=== PATIENT | male | born 1955 | race Caucasian/White ===

== ENCOUNTER → 2023-05-16 08:11 | Outpatient (REF) | payer MEDICARE, SELFPAY | LOC: RAD 08:11 | PROVIDERS: ATTENDING PHYSICIAN Surgery; FAMILY PHYSICIAN Family Medicine | DX: N50.811 Right testicular pain (principal) | CPT/HCPCS: 76870; 93976 ==

== ENCOUNTER 2024-05-25 19:49 | Emergency (ER) | payer MEDICARE, SELFPAY ==
[2024-05-25 19:52] VITALS: BP 205/99
[2024-05-25 20:21] VITALS: BP 163/76
[2024-05-25 20:36] VITALS: BMI 29.5
--- NOTE | 2024-05-25 20:50 | ED.GENMED ---
History of Present Illness
<CARLOS Traore - Last Filed: 05/26/24 17:44>
General
Chief Complaint: Blood Pressure Problem
Source: patient
Exam Limitations: none
Time Seen by Provider: 05/25/24 20:41
Nursing documentation reviewed up to this point in time: agreed with
History of Present Illness
History of Present Illness:
Patient is a 69-year-old male with history of hypertension presents to the ER for evaluation.
Prior to arrival patient reports he took an ibuprofen because he has been having some low back pain and then about 1 hour afterward felt very warm sensation and felt flushed in his head.
He did take his bp and it was 145/83. He retook it and it was 190/90.
He had no difficulty breathing no lip or tongue swelling no throat closing sensation. He does report he felt funny to the right side of his neck when symptoms occurred.
He had no chest pain no shortness of breath.
Pt did not take his evening bp medication tonight. He does note that in the past when he has had a pasta dinner and did not take his metformin, his face would get flushed and he did eat pasta tonight.
Review of Systems
<CARLOS Traore - Last Filed: 05/26/24 17:44>
Review of Systems
Allergies reviewed?: Yes
All Other Systems: ROS reviewed and negative except as documented in HPI and ROS
Constitutional: Reports no symptoms; Denies fever, fatigue or chills
EENT: Reports no symptoms
Respiratory: Reports no symptoms; Denies trouble breathing
Cardiac: Reports no symptoms; Denies palpitations
ABD/GI: Reports no symptoms
: Reports no symptoms
Musculoskeletal: Reports no symptoms
Skin: Reports other (felt flushed in his head )
Neurological: Reports no symptoms
Psychiatric: Reports no symptoms
Phy Exam
<CARLOS Traore - Last Filed: 05/26/24 17:44>
General Physical Exam
General Presentation: no apparent distress
General age: appears stated age
General Skin: warm and dry
General Habitus: normal
General Mental: alert
General Hydration: appears well hydrated
Cardiovascular Exam
Cardiovascular Exam: regular rate/rhythm, no murmur and normal peripheral pulses
Pulmonary Exam
Pulmonary Exam: lungs clear and no respiratory distress
Neurological Exam
Neurological Exam: alert and oriented x3
Musculoskeletal Exam
Musculoskeletal Exam: full ROM
Skin Exam
Skin Exam: normal color, warm/dry and other (mild facial flushing )
Psychiatric Exam
Psychiatric Exam: normal mood/affect
Course
<CARLOS Traore - Last Filed: 05/26/24 17:44>
Orders/Labs/Results
Orders:
Orders
05/25/24 19:54
ECG [Electrocardiogram (*1)] Urgent
Reason for Study: Hypertension, Benign
05/25/24 19:55
EKG- Treatment ONCE
05/25/24 20:51
IV Insert/Care/Rem.- Treatment PRN
05/25/24 21:44
Complete Blood Count/With Diff Urgent
Comprehensive Metabolic Panel Urgent
05/25/24 22:06
METFORMIN HCl [Glucophage] 1,000 mg PO NOW STA
Abnormal Lab Results
05/25/24
21:44
MPV 10.6 H fL
(7.4-10.4)
Abs Immat Gran (auto) 0.1 H 10^3/uL
(0-0.05)
Absolute Monos (auto) 1.1 H 10^3/uL
(0.1-0.6)
Immature Gran % 0.7 H %
(0-0.5)
Monocytes % 12.1 H %
(1.7-9.3)
BUN 30 H mg/dl
(9-20)
Glucose 198 H mg/dl
(70-99)
05/25/24 21:44
05/25/24 21:44
Vital Signs
Initial and Last Documented VS:
Initial Vital Signs
Temp Pulse Resp BP Pulse Ox
98.2 F 95 20 205/99 99
05/25/24 19:52 05/25/24 19:52 05/25/24 19:52 05/25/24 19:52 05/25/24 19:52
Last Documented Vital Signs
Temp Pulse Resp BP Pulse Ox
98.2 F 88 17 163/76 99
05/25/24 19:52 05/25/24 20:30 05/25/24 20:30 05/25/24 20:21 05/25/24 20:36
<Geovanna Miranda DO - Last Filed: 05/26/24 19:29>
Orders/Labs/Results
Orders:
Orders
05/25/24 19:54
ECG [Electrocardiogram (*1)] Urgent
Reason for Study: Hypertension, Benign
05/25/24 19:55
EKG- Treatment ONCE
05/25/24 20:51
IV Insert/Care/Rem.- Treatment PRN
05/25/24 21:44
Complete Blood Count/With Diff Urgent
Comprehensive Metabolic Panel Urgent
05/25/24 22:06
METFORMIN HCl [Glucophage] 1,000 mg PO NOW STA
Abnormal Lab Results
05/25/24
21:44
MPV 10.6 H fL
(7.4-10.4)
Abs Immat Gran (auto) 0.1 H 10^3/uL
(0-0.05)
Absolute Monos (auto) 1.1 H 10^3/uL
(0.1-0.6)
Immature Gran % 0.7 H %
(0-0.5)
Monocytes % 12.1 H %
(1.7-9.3)
BUN 30 H mg/dl
(9-20)
Glucose 198 H mg/dl
(70-99)
05/25/24 21:44
05/25/24 21:44
Vital Signs
Initial and Last Documented VS:
Initial Vital Signs
Temp Pulse Resp BP Pulse Ox
98.2 F 95 20 205/99 99
05/25/24 19:52 05/25/24 19:52 05/25/24 19:52 05/25/24 19:52 05/25/24 19:52
Last Documented Vital Signs
Temp Pulse Resp BP Pulse Ox
98.2 F 88 17 163/76 99
05/25/24 19:52 05/25/24 20:30 05/25/24 20:30 05/25/24 20:21 05/25/24 20:36
<CARLOS Traore - Last Filed: 05/26/24 17:44>
MDM/Problems Addressed
MDM/Problems Addressed:
Patient is document is a 69-year-old male who presented for facial flushing. He had taken ibuprofen because his back was hurting and then felt flushed. Because he was flushed have his blood pressure was elevated which prompted him to come to the
ER. He denies any headache and has no other symptoms he is well-appearing on exam he does have some mild facial flushing however he is nontoxic blood pressure is elevated. He reports that he has had facial flushing in the past with eating a pastas
dinner and not taking his metformin which occurred tonight. He has no neurological complaints no cardiac complaints denies any chest pain shortness of breath headache. He denies any visual disturbance. He is in no acute distress and well
appearing. Case d/c w/ ED physician who eval pt.
pt stable for d/c home with instructions to have his blood pressure rechecked and to continue taking his medicine.
<CARLOS Traore - Last Filed: 05/26/24 17:44>
*Critical Care Note
Total Time (30-74mins, 75-104mins- exclusive of procedures): Not Applicable
ED Attending Note
<CARLOS Traore - Last Filed: 05/26/24 17:44>
-
Portions of this chart may have been created with voice recognition software.� Occasional wrong word or��sound alike� substitutions may have occurred due to the inherent limitations of voice recognition software.
<Geovanna Miranda DO - Last Filed: 05/26/24 19:29>
ED Attending Note
Patient seen and examined by attending physician: Yes
I performed the substantive portion of visit, reviewed & personally made and approve the management plan that is documented in note by myself or ASIA.: Yes
ED Attending Note:
69-year-old male history of hypertension, hyperlipidemia, diabetes presenting with high blood pressure. Patient states that he was having low back pain and took ibuprofen. Patient states that an hour afterwards he felt a warm sensation throughout
his body and felt flushed to his face. Patient states that he took his blood pressure which was noted to be 190/90. Patient denies any chest pain, shortness of breath, visual changes, headache, abdominal pain, numbness, weakness or tingling.
Patient states that he did not take his evening dose of metoprolol tonight. Patient states that when he eats pasta and does not take his metformin, he has had episodes of facial flushing. Patient denies any cough, fever, weight loss, or changes
with moving his arms above his head. Patient was noted to be 205/99 in triage, but was 159/70s while I was in the room. Heart regular rate rhythm, lungs clear, abdomen soft nondistended nontender. PERRLA, EOMI. Cranial nerves II through show
grossly intact with no focal deficits. 5 5 strength bilateral upper lower extremities. Sensation intact. Normal [id number]. Results reviewed, no endorgan damage. Blood pressure decreased without any intervention in the emergency department.
Discussed importance of continuing to take blood pressure medications as prescribed. Suspect spike in elevated blood pressure from chronic pain and not taking medication. Stable for discharge with PCP follow-up. Discussed return precautions.
Patient expressed verbal understanding.
Discharge Plan
Departure
Patient Disposition: Home (Routine Discharge)
Date of Disposition: 05/25/24
Time of Disposition: 22:21
Patient with high blood pressure during this ER visit?: Yes
Condition: Fair
Covid-19: Not Applicable
Discharge Problem:
elevated blood pressure
Instructions: High Blood Pressure (DC), BLOOD PRESSURE
Prescriptions:
No Action
prednisone 10 MG tablet
10 mg PO .TAPER
atorvastatin 20 MG tablet
20 mg PO DAILY
metoprolol succinate 100 MG tablet extended release 24 hr
100 mg PO DAILY
chlorthalidone 25 MG tablet
25 mg PO DAILY
aspirin 81 MG tablet,delayed release (DR/EC)
81 mg PO DAILY
quinapril 40 MG tablet
40 mg PO DAILY
amlodipine 10 MG tablet
10 mg PO DAILY
cephalexin 500 MG capsule
500 mg PO BID
metformin 1,000 MG tablet
1,000 mg PO BID
fenofibrate nanocrystallized 145 MG tablet
145 mg PO DAILY
Referrals:
Eros Alvarenga DO [Family Provider] -
Activity Restrictions/Additional Instructions:
Continue to take your blood pressure medication as previously prescribed
follow-up with your family doctor in the next 2 days for reevaluation
return if any worsening of symptoms
Interventions
Interventions:
*Risk Screen - Suicide Last Done: 05/25/24 20:36
*General Assessment Last Done: 05/25/24 19:52
*Neglect/Abuse Screening Last Done: 05/25/24 20:36
*ED- Fall Risk Assessment Last Done: 05/25/24 20:36
*ED COVID-19 Vaccine History Last Done: 05/25/24 20:36
*Nursing Disposition Last Done: 05/25/24 22:52
ED- Cardiac Assessment Last Done: 05/25/24 20:36
ED- Neurological Assessment Last Done: 05/25/24 20:36
ED- Pulmonary Assessment Last Done: 05/25/24 20:36
Discharge Date and Time
Discharge Date/Time: 05/25/24 22:53
Print Language: TONGAN
[2024-05-25 21:50] LABS: % Basophils 0.8 % (0-2); % Eosinophils 2.1 % (0-6); % Immature Granulocytes 0.7 % (0-0.5); % Lymphocytes 22.3 % (20.5-51.1); % Monocytes 12.1 % (1.7-9.3); Absolute Basophils 0.1 10^3/uL (0-0.2); Absolute Eosinophils 0.2 10^3/uL (0-0.7); Absolute Immature Granulocytes 0.1 10^3/uL (0-0.05); Absolute Monocytes 1.1 10^3/uL (0.1-0.6); Absolute Neutrophils 5.4 10^3/uL (1.4-6.5); Hematocrit 45.7 % (39.0-52.0); Hemoglobin 16.2 g/dL (13.0-18.0); Mean Corp Hgb Conc. 35.4 g/dL (33.0-37.0); Mean Corpuscular Hgb 29.4 pg (27.0-31.0); Mean Corpuscular Volume 82.9 fL (80.0-94.0); Mean Platelet Volume 10.6 fL (7.4-10.4); Nucleated Red Blood Cells % 0 % (-); Platelet Count 272 10^3/uL (130-400); Red Blood Cell Count 5.51 10^6/uL (4.70-6.10); Red Cell Dist. Width 12.9 % (11.5-14.5); White Blood Cell Count 8.7 10^3/uL (4.8-10.8)
[2024-05-25 22:06] LABS: ALT (SGPT) 24 U/L (0-50); AST (SGOT) 26 U/L (17-59); Albumin 4.6 g/dl (3.5-5.0); Alkaline Phosphatase 43 U/L (38-126); Blood Urea Nitrogen 30 mg/dl (9-20); Calcium 9.8 mg/dl (8.4-10.2); Carbon Dioxide 24 mmol/L (22-30); Chloride 101 mmol/L (98-107); Estimated Creatinine Clearance 71 ml/min; Glucose 198 mg/dl (70-99); Potassium 3.8 mmol/L (3.5-5.1); Sodium 135 mmol/L (135-145); Total Bilirubin 0.7 mg/dl (0.2-1.3); Total Protein 7.6 g/dl (6.3-8.2); eGFR > 60.00
[2024-05-25] MEDS: GLUCOPHAGE 1000 MG PO (22:35)
== END 2024-05-25 22:53 | disposition home or self-care (01) ==
LOC: EMR 19:49
PROVIDERS: Nurse Practitioner; EMERGENCY PHYSICIAN Emergency Medicine; FAMILY PHYSICIAN Student in an Organized Health Care Education/Training Program
DX: I10 Essential (primary) hypertension (principal)
CPT/HCPCS: 99284; 80053; 85025; 93005

== ENCOUNTER 2024-06-07 06:19 | Day surgery (SDC) | payer MEDICARE, SELFPAY ==
[2024-05-24 14:16] VITALS: BMI 29.2
[2024-06-07] VITALS (7 sets, daily range): BP systolic 118–144; BP diastolic 47–76; BMI 29.2
[2024-06-07] MEDS: NORMOSOL-R/PLASMALYTE-A 1000 IV (09:35)
[2024-06-07] MEDS: TYLENOL 1000 MG PO (09:35)
[2024-06-07 09:36] LABS: Glucose - Point of Care 116 mg/dl (70-99)
--- NOTE | 2024-06-07 10:53 | W.SUR.PREOP ---
Pre-Operative Surgical Note
-
I have examined this patient prior to the performance of the scheduled procedure.
The patient's condition is unchanged from the time of the current History and
Physical and the patient is able to undergo the scheduled procedure.
[2024-06-07 12:03] LABS: Glucose - Point of Care 139 mg/dl (70-99)
[2024-06-07 13:08] LABS: Glucose - Point of Care 186 mg/dl (70-99)
--- NOTE | 2024-06-07 14:23 | PTCARENOTE ---
Report given to Isabela RN at 1415.
--- NOTE | 2024-06-07 15:01 | W.IMMPOSTOP ---
Surgical Immed Post Op Note
-
Primary Surgeon: Seamus Pressley MD
Assisting Surgeon: None
Pre-op Diagnosis: Recurrent right inguinal hernia
Post-op Diagnosis: Same
Procedure Performed:
1. Robotic recurrent right inguinal hernia repair with mesh
2. Removal of foreign body (mesh plug)
Anesthesia Type: General
Specimen / Cultures: Right inguinal mesh plug
Estimated Blood Loss: 3 cc
Complications: None
Operative Findings: Recurrent right direct inguinal hernia with mesh plug in place. Thankfully this was nonadherent to the surrounding structures and was removed intact. The flat mesh in the anterior space could be visualized and was divided flush
at the level of the direct space. After achieving the critical view of the MPO, the space was reinforced with a large right Bard 3D max uncoated mid weight polypropylene mesh.
--- NOTE | 2024-06-07 15:04 | OR.RPT ---
Operative Report
Operative Report
Patient Name: Derek Coronado
: 1955
Date of Operation: 06/07/2024
Preoperative Diagnosis: Recurrent right inguinal hernia
Postoperative Diagnosis: Same
Procedure(s):
1. Robotic recurrent right inguinal hernia repair with mesh
2. Removal of foreign body (mesh plug)
Surgeon(s):
Dr. Pressley
Lobster Man(s):
PATRICK Eric
Anesthesia: General
Estimated Blood Loss: 3 cc
Urine Output: None
Drains/Lines/Implants: Large 3D Max Bard mid weight uncoated polypropylene mesh
Specimens: None
Indication for surgery: The patient has a history of groin pain and noted on exam to have a recurrent right inguinal Hernia, in the setting of a previous open repair with mesh. Following review of therapeutic options they have elected to undergo a
minimally invasive repair.
Operative Findings: Recurrent right direct inguinal hernia with mesh plug in place. Thankfully this was nonadherent to the surrounding structures and was removed intact. The flat mesh in the anterior space could be visualized and was divided flush
at the level of the direct space. After achieving the critical view of the MPO, the space was reinforced with a large right Bard 3D max uncoated mid weight polypropylene mesh.
Details of the operation:
The patient was brought to the Operating Room and placed in the supine position with the arms tucked. IV antibiotics were infused and Venodyne stockings placed. Following uneventful induction of general endotracheal anesthesia, an orogastric tube
was placed. The abdomen was prepped and draped in the usual sterile fashion. The abdomen was entered using a Veress technique which required 1 pass, pneumoperitoneum to 15 mmHg was obtained without difficulty. An 8mm trochar was passed through the
abdominal wall roughly 20 cm cephalad to the inguinal canal. We then confirmed that no inadvertent injury was made while passing the trocar or Veress needle. We then placed two additional 8 mm ports in the left upper and right upper quadrants. We
then docked the robot with a Prograsper in the left hand port and monopolar scissors in the right. There was a notable defect in the right groin, no defect noted on the left. We then began by creating a flap at the level of the ASIS laterally
working our way medially to the medial umbilical fold. Staying onto the peritoneum we were able to circumferentially dissect around the hernia sac and and peel it off of the underlying spermatic cord and testicular vessels, taking care to preserve
them. Medially we identified the midline pubis as well as Martin's ligament and ensured to dissect 2 cm below the pubic rim over the bladder. As we took down the fat in the direct space it was clear that there was a mesh plug protruding through
the opening which was thankfully nonadherent to the surrounding keating structures and removed basically to the level of the transversalis fascia of the recurrent direct hernia. After exposure of the entire myopectineal orifice we identified and
reduced: A small direct inguinal hernia and corresponding mesh plug, no indirect or femoral defect. No cord lipoma was identified. We then fixated a large 3D max mesh with a 2-0 Vicryl stitch at coopers medially and superior laterally. The flap
was then closed with a running 2-0 barbed monocryl suture ensuring that the tail was cut flush with the medial fat pad so that no barbs were exposed. During the closure of the flap an Angiocath was inserted and 20 cc of quarter percent Marcaine was
instilled. The area in the flap cavity was then evacuated of air confirming that the mesh was flush and there were no folds. A small rent in the peritoneum was noted and closed with 2-0 Vicryl. All needles and instruments were then removed and the
robot was undocked. The abdomen was then desufflated, and pneumoperitoneum evacuated. All skin sites were then closed with 4-0 Monocryl followed by Dermabond. Counts were correct and overall, the patient tolerated the procedure well and was taken
to the Recovery Room postoperatively in stable condition.
I was the attending physician and performed the procedure with assistance of the PA above. The assistance of PATRICK Eric was required due to the complexity of the procedure. During the procedure Rebekah assisted with port placement, instrument
and needle exchanges, and closure of the wound. I was present for all portions of the case, excluding skin closure.
Saemus Pressley MD
== END 2024-06-07 14:35 | disposition home or self-care (01) ==
LOC: SDS 06:19
PROVIDERS: ATTENDING PHYSICIAN Surgery; FAMILY PHYSICIAN Student in an Organized Health Care Education/Training Program
DX: K40.91 Unilateral inguinal hernia, without obstruction or gangrene, recurrent (principal)
CPT/HCPCS: 49651; 88300; 36415; 82962; 93005; C1781

== ENCOUNTER 2024-06-18 15:05 | Outpatient (RCR) | payer MEDICARE, SELFPAY | END 2024-06-18 23:59 | disposition home or self-care (01) | LOC: RPT 15:05 | PROVIDERS: ATTENDING PHYSICIAN Student in an Organized Health Care Education/Training Program | DX: M54.12 Radiculopathy, cervical region (principal); Z73.6 Limitation of activities due to disability; M62.81 Muscle weakness (generalized); M25.512 Pain in left shoulder; C01 Malignant neoplasm of base of tongue | CPT/HCPCS: 97110; 97140; 97162 ==

== ENCOUNTER 2024-07-10 14:01 | Outpatient (RCR) | payer MEDICARE, SELFPAY | END 2024-07-10 23:59 | disposition home or self-care (01) | LOC: RPT 14:01 | PROVIDERS: ATTENDING PHYSICIAN Student in an Organized Health Care Education/Training Program | DX: M54.12 Radiculopathy, cervical region (principal); Z73.6 Limitation of activities due to disability; M62.81 Muscle weakness (generalized); M25.512 Pain in left shoulder; C01 Malignant neoplasm of base of tongue; R26.89 Other abnormalities of gait and mobility | CPT/HCPCS: 97010; 97110; 97140 ==

== ENCOUNTER → 2024-07-11 07:28 | Outpatient (REF) | payer MEDICARE, SELFPAY | LOC: RAD 07:28 | PROVIDERS: ATTENDING PHYSICIAN Student in an Organized Health Care Education/Training Program; OTHER PHYSICIAN Radiology Radiation Oncology; REFERRING PHYSICIAN Surgery | DX: R63.4 Abnormal weight loss (principal) | CPT/HCPCS: 71270; 74178; Q9967 ==

== ENCOUNTER 2024-07-27 12:23 | Inpatient (IN) | payer MEDICARE, SELFPAY ==
[2024-07-27] VITALS (10 sets, daily range): BP systolic 103–144; BP diastolic 50–74; PULSE 82; BMI 25.5; BMI 25.3
[2024-07-27 09:22] LABS: % Basophils 0.8 % (0-2); % Eosinophils 2.4 % (0-6); % Immature Granulocytes 0.4 % (0-0.5); % Lymphocytes 22.4 % (20.5-51.1); % Monocytes 12.6 % (1.7-9.3); % Neutrophils 61.4 % (42.2-75.2); Absolute Basophils 0.1 10^3/uL (0-0.2); Absolute Eosinophils 0.2 10^3/uL (0-0.7); Absolute Lymphocytes 1.6 10^3/uL (1.2-3.4); Absolute Monocytes 0.9 10^3/uL (0.1-0.6); Absolute Neutrophils 4.4 10^3/uL (1.4-6.5); Hematocrit 37.1 % (39.0-52.0); Hemoglobin 13.4 g/dL (13.0-18.0); Mean Corp Hgb Conc. 36.1 g/dL (33.0-37.0); Mean Corpuscular Hgb 29.9 pg (27.0-31.0); Mean Corpuscular Volume 82.8 fL (80.0-94.0); Mean Platelet Volume 10.7 fL (7.4-10.4); Nucleated Red Blood Cells % 0 % (-); Platelet Count 331 10^3/uL (130-400); Red Blood Cell Count 4.48 10^6/uL (4.70-6.10); Red Cell Dist. Width 13.5 % (11.5-14.5); White Blood Cell Count 7.2 10^3/uL (4.8-10.8)
[2024-07-27 09:38] LABS: ALT (SGPT) 80 U/L (0-50); AST (SGOT) 55 U/L (17-59); Albumin 4.2 g/dl (3.5-5.0); Alkaline Phosphatase 21 U/L (38-126); Blood Urea Nitrogen 23 mg/dl (9-20); Carbon Dioxide 30 mmol/L (22-30); Chloride 94 mmol/L (98-107); Glucose 160 mg/dl (70-99); Potassium 3.9 mmol/L (3.5-5.1); Sodium 131 mmol/L (135-145); Total Bilirubin 0.8 mg/dl (0.2-1.3); Total Protein 6.7 g/dl (6.3-8.2); eGFR > 60.00
--- NOTE | 2024-07-27 10:33 | ED.GENMED ---
History of Present Illness
General
Chief Complaint: Swallowing Problem
Source: patient
Exam Limitations: none
Time Seen by Provider: 07/27/24 10:10
History of Present Illness
History of Present Illness:
69-year-old male with history of hypertension [id number] diabetes presents with progressively worsening dysphagia. In May of this year, he had an inguinal hernia repair and he states he was intubated during that surgery. Since then
had extreme difficulty getting anything thicker than liquids down. He feels at times eggs get stuck and he either has to drink several glasses of water or cough it back up. He has lost 25 pounds since the surgery. He also notes ongoing left
shoulder pain. He was thought to have left shoulder strain and has been doing physical therapy without any significant relief. He cannot tolerate NSAIDs as it increases his blood pressure. The pain in his shoulder is keeping him up at night. He
also notes unsteady shuffling gait that is started recently with a tremor in the left arm. No fevers. No recurrent throat pain. He feels slightly distended in his abdomen but denies any abdominal pain. No chest pain. He had a CT scan of his
chest abdomen pelvis with and without IV contrast at the end of June which showed no acute findings. He has been in contact with an ENT doctor that he has seen in the past secondary to throat cancer. They wanted a swallow study or a barium
swallow for evaluation. 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
Phy Exam
Physical Exam
Physical Exam:
General: Weak appearing male no acute respiratory distress
HEENT normocephalic tongue is midline uvula midline no swelling in the posterior pharynx neck is supple
Heart: Regular rate and rhythm
Lungs: Clear no wheeze
Abdomen is soft nontender nondistended
Neurologic exam: Slow gait blunted affect tremor in the left arm alert and oriented otherwise
Extremities: No cyanosis or edema
Skin: warm, no rash
Course
Orders/Labs/Results
Orders:
Orders
07/27/24 09:16
CMP [Comprehensive Metabolic Panel] Urgent
Complete Blood Count/With Diff Urgent
07/27/24 10:32
CR Shoulder, Trauma - Left Urgent
Comment:
Reason For Exam: pain in shoulder
07/27/24 10:56
HYDROmorphone [Dilaudid] 0.5 mg IV NOW STA
Abnormal Lab Results
07/27/24
09:16
RBC 4.48 L 10^6/uL
(4.70-6.10)
Hct 37.1 L %
(39.0-52.0)
MPV 10.7 H fL
(7.4-10.4)
Absolute Monos (auto) 0.9 H 10^3/uL
(0.1-0.6)
Monocytes % 12.6 H %
(1.7-9.3)
Sodium 131 L mmol/L
(135-145)
Chloride 94 L mmol/L
(98-107)
BUN 23 H mg/dl
(9-20)
Glucose 160 H mg/dl
(70-99)
ALT 80 H U/L
(0-50)
Alkaline Phosphatase 21 L U/L
(38-126)
07/27/24 09:16
07/27/24 09:16
Vital Signs
Initial and Last Documented VS:
Initial Vital Signs
Temp Pulse Resp BP Pulse Ox
97.7 F 75 20 114/61 100
07/27/24 09:07 07/27/24 09:07 07/27/24 09:07 07/27/24 09:07 07/27/24 09:07
Last Documented Vital Signs
Temp Pulse Resp BP Pulse Ox
97.7 F 75 20 114/61 100
07/27/24 09:07 07/27/24 09:07 07/27/24 09:07 07/27/24 09:07 07/27/24 09:07
MDM/Problems Addressed
Differential Diagnosis Includes:
Patient with progressively worsening dysphagia, 25 pound weight loss and ongoing left shoulder pain. Differential is large but consider esophagitis versus left shoulder strain. Hard to ignore the tremor in his left arm with blunted affect and slow
shuffling gait on exam. Consider possible underlying neurologic issue such as Parkinson's that has been undiagnosed. Patient notes profound weakness and difficulty getting out of bed secondary to the lack of and nutrition. Labs reviewed sodium
131 otherwise no significant findings.
*Critical Care Note
Total Time (30-74mins, 75-104mins- exclusive of procedures): Not Applicable
Update Note
Update Note:
Discussed physical and history with emergency room attending as well as GI. It was felt best by GI team to keep patient in hospital secondary to dysphagia 25 pound weight loss. He would benefit from likely EGD and PT evaluation. Hospitalist made
aware
ED Attending Note
-
Portions of this chart may have been created with voice recognition software.� Occasional wrong word or��sound alike� substitutions may have occurred due to the inherent limitations of voice recognition software.
Discharge Plan
Departure
Patient Disposition: Admit
Date of Disposition: 07/27/24
Time of Disposition: 11:00
Presentation/result/management discussed w/ accepting MD/DO: Hospitalist
Discharge Problem:
Dysphagia
Prescriptions:
No Action
atorvastatin 20 MG tablet
20 mg PO QPM
metoprolol succinate 100 MG tablet extended release 24 hr
100 mg PO BID
aspirin 81 MG tablet,delayed release (DR/EC)
81 mg PO QPM
amlodipine 10 MG tablet
10 mg PO QPM
metformin 1,000 MG tablet
1,000 mg PO BID
fenofibrate nanocrystallized 145 MG tablet
145 mg PO QPM
tamsulosin 0.4 mg capsule
0.4 mg PO QPM
lorazepam 1 mg Tablet
0.5 mg PO PRN PRN (Reason: Anxiety)
lisinopril 40 mg tablet
40 mg PO QPM
finasteride 5 mg tablet
5 mg PO QPM
repaglinide 0.5 mg Tablet
0.5 mg PO PRN PRN (Reason: High Carb Meals)
acetaminophen 325 mg tablet
650 mg PO Q6HPRN PRN (Reason: mild pain) Qty: 14 0RF
ibuprofen 600 mg tablet
600 mg PO Q6H PRN (Reason: pain) Qty: 14 0RF
Referrals:
Eros Alvarenga DO [Family Provider] -
Discharge Date and Time
Print Language: SPANISH
[2024-07-27] MEDS: DILAUDID 0.5 MG IV ×2 (11:25→11:45)
--- NOTE | 2024-07-27 11:45 | HPS.HSE ---
Family Physician
-
Family Physician: Eros Alvarenga, DO
Chief Complaint
-
dysphagia
L shoulder pain,
L arm tremor and shuffling gait
History of Present Illness
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
In May 2024, he had an inguinal hernia repair and was intubated during that surgery. Per pt, since then he had extreme difficulty getting anything thicker than liquids down and feels food stuck.
He has lost 25 pounds since the surgery. He had a CT scan of his chest abdomen pelvis with and without IV contrast at the end of June which showed no acute findings.
He also notes ongoing left shoulder pain. He was thought to have left shoulder strain and has been doing physical therapy without any significant relief. He cannot tolerate NSAIDs as it increases his blood pressure per him.
The pain in his shoulder keeps him up at night.
He also noted recent development of unsteady shuffling and left arm rigidity with tremor.
Medical History
Past Medical History
Past Medical History: Reports Other
Additional Past Medical History:
hypertension,
ool-vhqtyei-tawjuxpgw diabetes,
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
Past Surgical History: Reports Tonsilectomy (in childhood) and Other
Additional Past Surgical History:
recent inguinal hernia surgery in May 2024;
Social History
Tobacco: Non-smoker
Alcohol: Occasional
Personal:
Living: With Family
Family History
Family History: Not pertinent
Allergies / Home Medications
Allergies reflects when Allergies were last updated in [facility].
Home Medications with original date entered in [facility]
Allergy/Medication List:
Medications on admission are unable to be verified or confirmed at this time.
Review of Systems
-
Abdomen/GI: Reports See HPI
Physical Exam
Vital Signs
Vital Signs
Temp Pulse Resp BP Pulse Ox
36.4 C 74 20 115/59 96
07/27/24 11:24 07/27/24 11:24 07/27/24 11:24 07/27/24 11:24 07/27/24 11:24
Physical Exam
General: Well Developed, Well Nourished, No Apparent Distress, Comfortable and Conversant (slow speech)
HEENT: NormoCephalic, Moist mucous membranes and Atraumatic
Respiratory: Clear and Non Labored Respirations; No Accessory Resp Muscle Use
Cardiac: S1/S2 and Regular Rhythm; No Murmur or Rub
GI: Soft, Non Tender, Non Distended and Normal Bowel Sounds; No Organomegaly
Rectal: Deferred by Provider
Musculoskeletal: No Clubbing, No Cyanosis and No Edema
Skin: No Rash
Neuro: Awake, Alert, Oriented and Tremors (L arm, with cogwheel rigidity)
Psych: Calm, Intact Judgment/Insight and Other (blunted facie)
Laboratory Results
-
07/27/24 09:16
07/27/24 09:16
Laboratory Results
Total Bilirubin 0.8 mg/dl (0.2-1.3) 07/27/24 09:16
AST 55 U/L (17-59) 07/27/24 09:16
ALT 80 U/L (0-50) H 07/27/24 09:16
Alkaline Phosphatase 21 U/L (38-126) L 07/27/24 09:16
Data Reviewed
-
Lab Data: Labs Reviewed by me
Impression/Plan
-
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
In May 2024, he had an inguinal hernia repair and was intubated during that surgery. Per pt, since then he had extreme difficulty getting anything thicker than liquids down and feels food stuck.
He has lost 25 pounds since the surgery. He had a CT scan of his chest abdomen pelvis with and without IV contrast at the end of June which showed no acute findings.
He also notes ongoing left shoulder pain. He was thought to have left shoulder strain and has been doing physical therapy without any significant relief. He cannot tolerate NSAIDs as it increases his blood pressure per him.
The pain in his shoulder keeps him up at night.
He also noted recent development of unsteady shuffling and left arm rigidity with tremor.
A/P:
# Progressive dysphagia
# Weight loss likely 2/2 poor PO intake
GI consulted for EGD eval
SPL eval and consider VSE after EGD
Clears for now
# new unsteady shuffling gait and new L arm tremor with cogwheel rigidity
?Parkinsonism/Parkinson's disease
Could his dysphagia be related to ?Parkinsonism/Parkinson's disease
Neuro eval
# L shoulder pain
Shoulder XR: No evidence of acute fracture or dislocation. Mild to moderate degenerative change of the left acromioclavicular joint.
trial of lidocaine patch
Dilaudid PRN with bowel regimen Senokot-S
consider outpt MRI L shoulder
PT OT eval when more clinically stable
# hypertension
Cont home meds with holding parameter
# wiw-knnztmr-lgzkkfprd diabetes
ISS
# h/o HPV throat cancer s/p surgery and XRT
# recent inguinal hernia surgery in May 2024
DVT ppx: Lovenox SQ
FC
--- NOTE | 2024-07-27 12:39 | CON.NEURO ---
Consultation
Order
Date of Consultation: 07/27/24
Requesting Provider: Charis Farmer MD
Reason for Consult: Parkinsonism
Neurology Consult Note.
CC: Left shoulder pain
HPI:This is a 69-year-old right-handed man who presented to [facility] on July 27, 2024 with left shoulder pain.
Mr. Coronado is unsure of the exact onset but mentions it may have started after lifting something heavy in the garage, though the pain developed gradually. The pain has significantly impacted his sleep, with the patient reporting only 15 minutes of
sleep the night before due to severe shoulder pain. He has tried Tylenol for pain relief, but it has been ineffective. The patient cannot take ibuprofen due to its effect on raising his blood pressure.
Mr. Coronado states that following his recent hernia surgery on June 07, developed dysphagia to solids, which began 2-3 weeks post-op.
He admits to left>right stiffness. He struggles with with turning, cutting food. No reports of diplopia, dysarthria, imbalance, falls, sialorrhea, odynophagia, nightmares, DA blockers use or visual hallucinations.
ER VS:114/61, 75, afebrile
PDMP:Lorazepam 1 Mg 5 tabs filled in on 06/22/2024.
Labs: Na 131, gluc 160.
�
PMH:right tongue SSC(s/p RT, resection(2001), HTN, DLP, DM, BPH
PSH: hernia surgery, right inguinal hernia repair, tonsillectomy
SH:, retired, nonsmoker; no history of excessive ETOh use;
FH:mother in her late 80s, father is living
All:Codeine, NSAID-HTN
ROS:positive for weigh loss
HENT: Positive for chronic dysphonia, anosmia and dysgeusia following cancer surgery
Eyes: Negative. Negative for photophobia, pain and visual disturbance.
Respiratory: Negative for cough, choking and shortness of breath.
Cardiovascular: Negative for chest pain, palpitations and leg swelling.
Gastrointestinal: Negative for abdominal pain and vomiting.
Endocrine: Negative. Negative for cold intolerance.
Genitourinary: Negative for dysuria, flank pain and urgency.
Musculoskeletal: positive for left shoulder pain
Skin: Negative for rash.
Allergic/Immunologic: Negative. Negative for immunocompromised state.
Neurological: positive for stiffness, intermittent left hand tremor
�
�
General: Well developed. In no acute distress.
Cardio: Regular rate and rhythm without murmur. Extremities are without cyanosis or edema.
Neuro:
Mental Status: Alert, oriented to person, place, and date.� Normal attention and recall.� Good fund of knowledge. Follows complex requests across the midline.� Comprehension, naming, and repetition intact.�
Cranial Nerves: Unable to visualize optic discs due to insufficient dilatation. Pupils are equally round and reactive to light.� EOMs full except for upgaze palsy. Visual sewell full to confrontation.� No ptosis.� No nystagmus.� V1-V3 intact to
light touch and pinprick bilaterally, symmetric.� Face symmetric.� Normal hearing AU.� The palate elevated well.� SCMs and traps 5/5.� Tongue midline.� No dysarthria.
Motor:������:������� increased motor tone L>R UE with cogwheeling at the R wrist. � No pronator or arm drift.� Strength 5/5 throughout. No clonus.
Reflexes:������������ 2+ throughout the upper extremities and knees.�Plantar responses flexor bilaterally.
Sensory:���� Normal proprioception at the toes
Coordination: No dysmetria or tremor.� Reduced FFM on the L>R
Gait:���������� deferred
�
Assessment and Plan:
�
I. Left hemiparkinsonism. Differential diagnosis includes secondary parkinsonism(vascular, structural (hydrocephalus, chronic subdural hematoma, tumor), metabolic(hypoparathyroidism and pseudohypoparathyroidism, chronic liver failure, extrapontine
myelinolysis) , neurodegenerative(IPD, CBD, LBD), less likely infections(neurosyphilis).
II. Left shoulder pain
III. Dysphagia to solids.
-Fall and aspiration precautions
-Dysphagia evaluation
-Start Carbidopa-Levodopa 25/100 1 tab TID with titration to 1 tab TID in 1 week as tolerated. Most common sided effects of Sinemet including but not limited to� nausea, orthostatic hypotension, constipation, depression, headache, dyskinesia;
-Brain MRI wo lauro
-Avoid antipsychotic drugs, antiemetic/promotility agents ( metoclopramide); dopamine-depleting agents (reserpine); cinnarizine/flunarizine, valproic acid
-OP Nikita scan to look for reduced dopamine transporter uptake in basal ganglia based on brain MRI results and polysomnography for REM sleep based on clinical course
-PT/OT
�
I personally reviewed all labs along with past medical records pertinent to current medical problems, total time spent in patient care is 65 minutes.
�
Thank you for allowing us to participate in the care of this patient. We will continue to follow. Please do not hesitate to contact us with any questions or concerns.
Subjective/Objective
Subjective Data
Date of Service: July 27, 2024
Objective Data
Vital Signs
Temp Pulse Resp BP Pulse Ox
36.4 C 74 20 115/59 96
07/27/24 11:24 07/27/24 11:24 07/27/24 11:24 07/27/24 11:24 07/27/24 11:24
Lab Results
07/27/24 09:16
07/27/24 09:16
Sodium 131 mmol/L (135-145) L 07/27/24 09:16
Potassium 3.9 mmol/L (3.5-5.1) 07/27/24 09:16
BUN 23 mg/dl (9-20) H 07/27/24 09:16
Glucose 160 mg/dl (70-99) H 07/27/24 09:16
Calcium 10.0 mg/dl (8.4-10.2) 07/27/24 09:16
Patient Allergies
cat dander Allergy (Verified 07/27/24 09:10)
Asthma, Congestion
codeine Allergy (Verified 07/27/24 09:10)
Vomiting
latex Allergy (Verified 07/27/24 09:10)
Rash
Medications
-
Home Medications
�Medication �Instructions �Recorded
amlodipine 10 mg tablet 10 mg PO QPM 06/08/21
aspirin 81 mg tablet,delayed 81 mg PO QPM 06/08/21
release
atorvastatin 20 mg tablet 20 mg PO QPM 06/08/21
fenofibrate nanocrystallized 145 145 mg PO QPM 06/08/21
mg tablet
metformin 1,000 mg tablet 1,000 mg PO BID 06/08/21
metoprolol succinate 100 mg 100 mg PO BID 06/08/21
tablet,extended release 24 hr
finasteride 5 mg tablet 5 mg PO QPM 05/31/24
lisinopril 40 mg tablet 40 mg PO QPM 05/31/24
lorazepam 1 mg tablet 1 mg PO DAILYPRN PRN Anxiety 05/31/24
tamsulosin 0.4 mg capsule 0.4 mg PO QPM 05/31/24
acetaminophen 325 mg tablet 650 mg (2 x 325 mg) PO Q6HPRN PRN 06/07/24
mild pain #14 tabs
chlorthalidone 25 mg tablet 25 mg PO QPM 07/27/24
Vital Signs and Labs
-
Vital Signs and Labs:
Vital Signs
Temp Pulse Resp BP Pulse Ox
36.4 C 74 20 115/59 96
07/27/24 11:24 07/27/24 11:24 07/27/24 11:24 07/27/24 11:24 07/27/24 11:24
Lab Results
07/27/24 09:16
07/27/24 09:16
Sodium 131 mmol/L (135-145) L 07/27/24 09:16
Potassium 3.9 mmol/L (3.5-5.1) 07/27/24 09:16
BUN 23 mg/dl (9-20) H 07/27/24 09:16
Glucose 160 mg/dl (70-99) H 07/27/24 09:16
Calcium 10.0 mg/dl (8.4-10.2) 07/27/24 09:16
Medications
-
Medications:
Generic Name Dose Route Start Last Admin
Trade Name Freq PRN Reason Stop Dose Admin
Carbidopa/Levodopa 1 tablet 07/27/24 16:00
Carbidopa (25 Mg)/Levodopa (100 Mg) Regular Release Tablet PO 08/24/24 15:59
TID KAY
Home Medications
-
Home Medications
amlodipine 10 mg tablet 10 mg PO QPM 06/08/21
aspirin 81 mg tablet,delayed release 81 mg PO QPM 06/08/21
atorvastatin 20 mg tablet 20 mg PO QPM 06/08/21
fenofibrate nanocrystallized 145 mg tablet 145 mg PO QPM 06/08/21
metformin 1,000 mg tablet 1,000 mg PO BID 06/08/21
metoprolol succinate 100 mg tablet,extended release 24 hr 100 mg PO BID 06/08/21
finasteride 5 mg tablet 5 mg PO QPM 05/31/24
lisinopril 40 mg tablet 40 mg PO QPM 05/31/24
lorazepam 1 mg tablet 1 mg PO DAILYPRN PRN Anxiety 05/31/24
tamsulosin 0.4 mg capsule 0.4 mg PO QPM 05/31/24
acetaminophen 325 mg tablet 650 mg (2 x 325 mg) PO Q6HPRN PRN mild pain #14 tabs 06/07/24
chlorthalidone 25 mg tablet 25 mg PO QPM 07/27/24
--- NOTE | 2024-07-27 13:18 | CON.GI ---
Addendum entered and electronically signed by Derek Freeman MD 07/27/24 16:00:
Patient seen and examined, agree with resident note. The patient is a 69-year-old male with past medical history as noted presents with increasing dysphagia. He has a history of head neck cancer status post surgery and radiation 2021 with
temporary trach and feeding tube after bleeding postoperatively. Since then he has been doing okay until his recent surgery for hernia repair. Since then he has been having issues with trouble initiating a swallow, initially to dysphagia's, though
now to liquids, as well as difficulty swallowing pills. Because of his decreased oral intake has been having some weight loss and is also noted a tremor and some gait instability. He last saw his ENT at [address] last year, and has has had negative
PET/CT recently. On exam he has no abdominal tenderness, rebound or guarding.
1. Dysphagia: With trouble initiating a swallow, temporally related to his recent surgery with general anesthesia and intubation, likely edema from trauma of intubation. He really has no esophageal symptoms. He is being evaluated by speech
pathology, though would otherwise defer to ENT. If still having significant issues and negative speech evaluation would have ENT evaluation.
We will sign off now, please go back with any further questions.
Original Note:
Consultation
-
Date/Time Consultation Requested: 07/27/24
Date/Time Consultation Performed: 07/27/24
Requesting Provider: Dr Armand Freeman
Performing Provider: Dr Ameya Méndez
Reason for Consultation: dysphagia
Medical History
Chief Complaint / HPI
Chief Complaint: dysphagia
History of Present Illness:
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 Patient had inguinal hernia repair with mesh placement on 06/07/24 was intubated during that surgery.
Post surgery he reports feeling of abd bloating, fullness. 2 weeks after surgery he noted dysphagia to solids only, can tolerate liquids. Denies odynophagia. He reports dysphagia has worsened and he has difficulty now swallowing pills. He has lost
25 lbs. He reports of new left hand tremor and gait instability. He is tolerating clears, drank few sips of water since am. Denies choking, coughing.
Patient has history of modified right neck dissection s/p robotic assisted right hemiglossectomy, partial oropharyngectomy, tonsillectomy and flap reconstruction. He gets yearly laryngoscope, previous PET/CT was in 2022 which shows no new
neoplastic recurrence. He has seen Dr Brown for hemorrhoids, previous anoscopy in 2021 which revealed moderate internal hemorrhoids.
Past Medical History
Past Medical History: Other (HPV laryngeal cancer, inguinal hernia)
Past Surgical History: Other (hernia repair x 2 )
Social History
Tobacco: Non-Smoker
Alcohol: None
Drug: None
Personal:
Living: With Family
Employment: Retired
Family History
Family History: Reviewed & Not Pertinent
Allergies / Home Medications
Allergy/AdvReac Type Severity Reaction Status Date / Time
cat dander Allergy Asthma, Verified 07/27/24 09:10
Congestion
codeine Allergy Vomiting Verified 07/27/24 09:10
latex Allergy Rash Verified 07/27/24 09:10
�Medication �Instructions �Recorded
amlodipine 10 mg tablet 10 mg PO QPM 06/08/21
aspirin 81 mg tablet,delayed 81 mg PO QPM 06/08/21
release
atorvastatin 20 mg tablet 20 mg PO QPM 06/08/21
fenofibrate nanocrystallized 145 145 mg PO QPM 06/08/21
mg tablet
metformin 1,000 mg tablet 1,000 mg PO BID 06/08/21
metoprolol succinate 100 mg 100 mg PO BID 06/08/21
tablet,extended release 24 hr
finasteride 5 mg tablet 5 mg PO QPM 05/31/24
lisinopril 40 mg tablet 40 mg PO QPM 05/31/24
lorazepam 1 mg tablet 1 mg PO DAILYPRN PRN Anxiety 05/31/24
tamsulosin 0.4 mg capsule 0.4 mg PO QPM 05/31/24
acetaminophen 325 mg tablet 650 mg (2 x 325 mg) PO Q6HPRN PRN 06/07/24
mild pain #14 tabs
chlorthalidone 25 mg tablet 25 mg PO QPM 07/27/24
Review of Systems
-
All other systems: A 12 pt ROS was Negative except as stated above in HPI
Vital Signs
Temp Pulse Resp BP Pulse Ox
97.6 F 74 20 115/59 96
07/27/24 11:24 07/27/24 11:24 07/27/24 11:24 07/27/24 11:24 07/27/24 11:24
Physical Exam
Exam
General: Comfortable
HEENT: Normocephalic
Respiratory: Clear
Cardiac: S1/S2 and Regular Rhythm
GI: Soft, Non Tender, Non Distended and Normal Bowel Sounds
Musculoskeletal: No Edema
Neuro: AO x 3 and Tremors
Psych: Calm
Results
WBC 7.2 10^3/uL (4.8-10.8) 07/27/24 09:16
Hgb 13.4 g/dL (13.0-18.0) 07/27/24 09:16
Hct 37.1 % (39.0-52.0) L 07/27/24 09:16
MCV 82.8 fL (80.0-94.0) 07/27/24 09:16
Plt Count 331 10^3/uL (130-400) 07/27/24 09:16
Absolute Neuts (auto) 4.4 10^3/uL (1.4-6.5) 07/27/24 09:16
Sodium 131 mmol/L (135-145) L 07/27/24 09:16
Potassium 3.9 mmol/L (3.5-5.1) 07/27/24 09:16
Chloride 94 mmol/L (98-107) L 07/27/24 09:16
Carbon Dioxide 30 mmol/L (22-30) 07/27/24 09:16
BUN 23 mg/dl (9-20) H 07/27/24 09:16
Creatinine 0.9 mg/dL (0.7-1.3) 07/27/24 09:16
Calcium 10.0 mg/dl (8.4-10.2) 07/27/24 09:16
Total Bilirubin 0.8 mg/dl (0.2-1.3) 07/27/24 09:16
AST 55 U/L (17-59) 07/27/24 09:16
ALT 80 U/L (0-50) H 07/27/24 09:16
Alkaline Phosphatase 21 U/L (38-126) L 07/27/24 09:16
Diagnostic Image Results:
Prior GI Procedures:
EGD:
Colonoscopy:
Assessment / Plan
-
PLAN
#Progressive dysphagia secondary to radiation/ recurrence of malignancy/ muscle weakness(Parkinson ?)
-Dysphagia with solids only. Tolerating liquids.
-Denies odynophagia. Weight loss of 25 lbs
-New shuffling gait with left hand tremor
-Will recommend laryngoscope --- ENT consult
-PET/CT was in 2022 which shows no new neoplastic recurrence.
-Speech eval
- OK with clears
-
-
Thank you for consultation and allowing me to participate in the patient's care. Please call the senior economist GI physician during the after hours with any questions or concerns.
--- NOTE | 2024-07-27 14:01 | EDRN ---
this RN called the receiving nurse Abe RYDER and gave verbal report, paper report was also tubed up to the receiving unit
--- NOTE | 2024-07-27 14:10 | EDRN ---
physical therapy currently at the pts bedside
--- NOTE | 2024-07-27 14:56 | PTOTSP ---
Dysphagia Eval
Signs concerning for pharyngeal dysphagia with suspected etiology related to prior head neck cancer (right base of tongue s/p resection and XRT in 2021) and acutely exacerbated after intubation for surgery May 2024. No known pulmonary
complications but 25 pound weight loss.
Recommend:
1. Thin liquids
2. Medications as best tolerated (crushed in liquids if able)
3. Oral care 3x daily
4. FEES
5. RD consult
[2024-07-27] MEDS: LIDOCAINE 4% PATCH 1 PATCH TOPICAL (15:01)
[2024-07-27 17:53] LABS: Glucose - Point of Care 135 mg/dl (70-99)
[2024-07-27] MEDS: SINEMET 25-100 PO ×2 (17:55→22:21)
[2024-07-27] MEDS: NOVOLOG FLEXPEN-LOW RESISTANCE SC (17:55)
[2024-07-27] MEDS: PROSCAR 5 MG PO (17:56)
[2024-07-27] MEDS: FLOMAX 0.4 MG PO (17:56)
[2024-07-27] MEDS: ZESTRIL 40 MG PO (17:56)
[2024-07-27] MEDS: LOVENOX 40 MG SC (17:56)
[2024-07-27] MEDS: NORVASC 10 MG PO (17:56)
[2024-07-27] MEDS: LOPRESSOR 100 MG PO (19:55)
[2024-07-27] MEDS: SENOKOT-S PO ×2 (19:55→22:26)
[2024-07-27] MEDS: DILAUDID 0.25 MG IV (19:55)
[2024-07-27 21:57] LABS: Glucose - Point of Care 115 mg/dl (70-99)
[2024-07-27] MEDS: MELATONIN 5 MG PO (22:21)
[2024-07-28 07:20] LABS: Glucose - Point of Care 122 mg/dl (70-99)
[2024-07-28 07:33] VITALS: BP 144/69
[2024-07-28] MEDS: DILAUDID 0.25 MG IV ×3 (07:36→23:00)
[2024-07-28] MEDS: LOW STRENGTH ASPIRIN 81 MG PO (07:37)
[2024-07-28] MEDS: SENOKOT-S 1 TABLET PO (07:37)
[2024-07-28] MEDS: LIDOCAINE 4% PATCH 1 PATCH TOPICAL (07:37)
[2024-07-28] MEDS: NOVOLOG FLEXPEN-LOW RESISTANCE SC ×2 (07:38→16:36)
[2024-07-28] MEDS: LOPRESSOR 100 MG PO ×2 (07:38→20:41)
[2024-07-28] MEDS: SINEMET 25-100 PO ×3 (07:45→20:35)
--- NOTE | 2024-07-28 08:15 | W.PN.NEURO.1 ---
Today's Communication / Plan
-
.
Subjective/Objective
Subjective Data
Date of Service: July 28, 2024
Neurology follow-up note
Mr. Coronado states that his left shoulder pain have improved with lidocaine patch and hydromorphone.
The patient has declined Sinemet trial and will consider the above as outpatient.
Continues to have dysphagia to solids.
Brain MRI�Minimal T2 and FLAIR white matter hyperintensities.
PMH:right tongue SSC(s/p RT, resection(2001), HTN, DLP, DM, BPH
PSH: hernia surgery, right inguinal hernia repair, tonsillectomy
SH:, retired, nonsmoker; no history of excessive ETOh use;
FH:mother in her late 80s, father is living
All:Codeine, NSAID-HTN
ROS:positive for weigh loss
HENT: Positive for chronic dysphonia, anosmia and dysgeusia following cancer surgery
Eyes: Negative. Negative for photophobia, pain and visual disturbance.
Respiratory: Negative for cough, choking and shortness of breath.
Cardiovascular: Negative for chest pain, palpitations and leg swelling.
Gastrointestinal: Negative for abdominal pain and vomiting.
Endocrine: Negative. Negative for cold intolerance.
Genitourinary: Negative for dysuria, flank pain and urgency.
Musculoskeletal: positive for left shoulder pain
Skin: Negative for rash.
Allergic/Immunologic: Negative. Negative for immunocompromised state.
Neurological: positive for stiffness, intermittent left hand tremor
�
�
General: Well developed. In no acute distress.
Cardio: Regular rate and rhythm without murmur. Extremities are without cyanosis or edema.
Neuro:
Mental Status: Alert, oriented to person, place, and date.� Normal attention and recall.� Good fund of knowledge. Follows complex requests across the midline.� Comprehension, naming, and repetition intact.�
Cranial Nerves: Unable to visualize optic discs due to insufficient dilatation. Pupils are equally round and reactive to light.� EOMs full except for upgaze palsy. Visual sewell full to confrontation.� No ptosis.� No nystagmus.� V1-V3 intact to
light touch and pinprick bilaterally, symmetric.� Face symmetric.� Normal hearing AU.� The palate elevated well.� SCMs and traps 5/5.� Tongue midline.� No dysarthria.
Motor:������:������� increased motor tone L>R UE with cogwheeling at the R wrist. � No pronator or arm drift.� Strength 5/5 throughout. No clonus.
Reflexes:������������ 2+ throughout the upper extremities and knees.�Plantar responses flexor bilaterally.
Sensory:���� Normal proprioception at the toes
Coordination: No dysmetria or tremor.� Reduced FFM on the L>R
Gait:���������� deferred
�
Assessment and Plan:
�
I. Left hemiparkinsonism.
II. Left shoulder pain, improved
III. Dysphagia to solids.
- Fall and aspiration precautions
- PT
- Avoid antipsychotic drugs, antiemetic/promotility agents ( metoclopramide); dopamine-depleting agents (reserpine); cinnarizine/flunarizine, valproic acid
-Is discussed with the patient and his spouse in details. All questions were answered
- Outpatient neurology follow-up
- Please recall neurology services any questions or concerns
�
I personally reviewed all labs along with past medical records pertinent to current medical problems, total time spent in patient care is 35 minutes.
�
Thank you for allowing us to participate in the care of this patient. Please do not hesitate to contact us with any questions or concerns
Objective Data
Vital Signs
Temp Pulse Resp BP Pulse Ox
36.6 C 75 17 144/69 98
07/28/24 07:33 07/28/24 07:38 07/28/24 07:33 07/28/24 07:38 07/28/24 07:33
Sodium 131 mmol/L (135-145) L 07/27/24 09:16
Potassium 3.9 mmol/L (3.5-5.1) 07/27/24 09:16
BUN 23 mg/dl (9-20) H 07/27/24 09:16
Glucose 160 mg/dl (70-99) H 07/27/24 09:16
Calcium 10.0 mg/dl (8.4-10.2) 07/27/24 09:16
Patient Allergies
cat dander Allergy (Verified 07/27/24 09:10)
Asthma, Congestion
codeine Allergy (Verified 07/27/24 09:10)
Vomiting
latex Allergy (Verified 07/27/24 09:10)
Rash
Vital Signs and Labs
-
Vital Signs and Labs:
Vital Signs
Temp Pulse Resp BP Pulse Ox
36.6 C 75 17 144/69 98
07/28/24 07:33 07/28/24 07:38 07/28/24 07:33 07/28/24 07:38 07/28/24 07:33
Lab Results
07/28/24 09:05
07/28/24 09:05
Sodium 133 mmol/L (135-145) L 07/28/24 09:05
Potassium 3.7 mmol/L (3.5-5.1) 07/28/24 09:05
BUN 17 mg/dl (9-20) 07/28/24 09:05
Glucose 149 mg/dl (70-99) H 07/28/24 09:05
Calcium 9.5 mg/dl (8.4-10.2) 07/28/24 09:05
Medications
-
Medications:
Generic Name Dose Route Start Last Admin
Trade Name Freq PRN Reason Stop Dose Admin
Acetaminophen 650 mg 07/27/24 13:37
Acetaminophen 325 Mg Tablet PO 08/24/24 13:36
Q6HPRN PRN
mild pain
Amlodipine Besylate 10 mg 07/27/24 18:00 07/27/24 17:56
Amlodipine 10 Mg Tablet PO 08/24/24 17:59 10 mg
QPM KAY Administration
Aspirin 81 mg 07/28/24 08:00 07/28/24 07:37
Aspirin 81 Mg Chewable Tablet PO 08/25/24 07:59 81 mg
DAILY KAY Administration
Bisacodyl 10 mg 07/27/24 13:37
Bisacodyl 10 Mg Rectal Suppository RECTAL 08/24/24 13:36
[id number] PRN
constipation
Carbidopa/Levodopa 1 tablet 07/27/24 16:00 07/28/24 07:45
Carbidopa (25 Mg)/Levodopa (100 Mg) Regular Release Tablet PO 08/24/24 15:59 Not Given
TID KAY
Dextrose 12.5 grams 07/27/24 13:37
Dextrose 50% (0.5 Grams/Ml) 50 Ml Syringe IV 08/24/24 13:36
[id number] PRN
hypoglycemia
Protocol
Enoxaparin Sodium 40 mg 07/27/24 18:00 07/27/24 17:56
Enoxaparin Sodium 40 Mg/0.4 Ml Syringe SC 08/24/24 17:59 40 mg
QPM KAY Administration
Finasteride 5 mg 07/27/24 18:00 07/27/24 17:56
Finasteride 5 Mg Tablet PO 08/24/24 17:59 5 mg
QPM KAY Administration
Glucagon 1 mg 07/27/24 13:37
Glucagon 1 Mg Vial IM 08/24/24 13:36
PRN PRN
hypoglycemia
Protocol
Hydromorphone HCl 0.25 mg 07/27/24 17:45 07/28/24 07:36
Hydromorphone 0.25 Mg/0.5 Ml Syringe IV 08/10/24 17:44 0.25 mg
Q6HPRN PRN Administration
severe pain
Magnesium Sulfate 2 gram in 50 mls @ 25 mls/hr 07/28/24 11:01
Magnesium Sulfate IV 07/28/24 13:00
NOW STA
Insulin Aspart 0 units 07/27/24 16:30 07/28/24 07:38
Insulin Aspart Low Resistance 300 Units/3 Ml Pen.Injctr SC 08/24/24 16:29 Not Given
AC KAY
Protocol
Lidocaine 1 patch 07/27/24 13:37 07/28/24 07:37
Lidocaine 4% Topical Patch TOPICAL 08/24/24 13:36 1 patch
DAILY KAY Administration
Protocol
Lisinopril 40 mg 07/27/24 18:00 07/27/24 17:56
Lisinopril 20 Mg Tablet PO 08/24/24 17:59 40 mg
QPM KAY Administration
Lorazepam 1 mg 07/27/24 13:37 07/28/24 08:47
Lorazepam 1 Mg Tablet PO 08/24/24 13:36 1 mg
DAILYPRN PRN Administration
Anxiety
Melatonin 5 mg 07/27/24 22:00 07/27/24 22:21
Melatonin 5 Mg Tablet PO 08/24/24 21:59 5 mg
HS KAY Administration
Metoprolol Tartrate 100 mg 07/27/24 20:00 07/28/24 07:38
Metoprolol 100 Mg Regular Release Tablet PO 08/24/24 19:59 100 mg
BID KAY Administration
Polyethylene Glycol 17 grams 07/27/24 13:37
Polyethylene Glycol Powder 17 Grams Packet PO 08/24/24 13:36
DAILYPRN PRN
constipation
Senna/Docusate Sodium 1 tablet 07/27/24 13:37
Docusate W/Senna (Joy-Colace) Tablet PO 08/24/24 13:36
BIDPRN PRN
constipation
Senna/Docusate Sodium 1 tablet 07/27/24 20:00 07/28/24 07:37
Docusate W/Senna (Joy-Colace) Tablet PO 08/24/24 19:59 1 tablet
BID KAY Administration
Sodium Chloride 0 flush 07/27/24 13:00
Sodium Chloride 0.9% (Flush) Syringe IV 08/24/24 12:59
PER PROTOCOL KAY
Tamsulosin HCl 0.4 mg 07/27/24 18:00 07/27/24 17:56
Tamsulosin 0.4 Mg Capsule PO 08/24/24 17:59 0.4 mg
QPM KAY Administration
Home Medications
-
Home Medications
amlodipine 10 mg tablet 10 mg PO QPM 06/08/21
aspirin 81 mg tablet,delayed release 81 mg PO QPM 06/08/21
atorvastatin 20 mg tablet 20 mg PO QPM 06/08/21
fenofibrate nanocrystallized 145 mg tablet 145 mg PO QPM 06/08/21
metformin 1,000 mg tablet 1,000 mg PO BID 06/08/21
metoprolol succinate 100 mg tablet,extended release 24 hr 100 mg PO BID 06/08/21
finasteride 5 mg tablet 5 mg PO QPM 05/31/24
lisinopril 40 mg tablet 40 mg PO QPM 05/31/24
lorazepam 1 mg tablet 1 mg PO DAILYPRN PRN Anxiety 05/31/24
tamsulosin 0.4 mg capsule 0.4 mg PO QPM 05/31/24
acetaminophen 325 mg tablet 650 mg (2 x 325 mg) PO Q6HPRN PRN mild pain #14 tabs 06/07/24
chlorthalidone 25 mg tablet 25 mg PO QPM 07/27/24
[2024-07-28] MEDS: ATIVAN 1 MG PO (08:47)
[2024-07-28 09:28] LABS: Hematocrit 36.5 % (39.0-52.0); Hemoglobin 13.2 g/dL (13.0-18.0); Mean Corp Hgb Conc. 36.2 g/dL (33.0-37.0); Mean Corpuscular Hgb 29.7 pg (27.0-31.0); Mean Corpuscular Volume 82.2 fL (80.0-94.0); Mean Platelet Volume 11.1 fL (7.4-10.4); Platelet Count 306 10^3/uL (130-400); Red Blood Cell Count 4.44 10^6/uL (4.70-6.10); Red Cell Dist. Width 13.3 % (11.5-14.5); White Blood Cell Count 6.7 10^3/uL (4.8-10.8)
[2024-07-28 10:15] LABS: ALT (SGPT) 104 U/L (0-50); AST (SGOT) 83 U/L (17-59); Albumin 4.5 g/dl (3.5-5.0); Alkaline Phosphatase 23 U/L (38-126); Blood Urea Nitrogen 17 mg/dl (9-20); Calcium 9.5 mg/dl (8.4-10.2); Carbon Dioxide 27 mmol/L (22-30); Chloride 95 mmol/L (98-107); Direct Bilirubin 0.2 mg/dl (0.0-0.4); Estimated Creatinine Clearance 77 ml/min; Glucose 149 mg/dl (70-99); Magnesium 1.6 mg/dl (1.6-2.3); Potassium 3.7 mmol/L (3.5-5.1); Sodium 133 mmol/L (135-145); Total Bilirubin 0.8 mg/dl (0.2-1.3); Total Protein 6.6 g/dl (6.3-8.2); eGFR > 60.00
--- NOTE | 2024-07-28 11:02 | W.PN.HOSP.TC ---
Today's Communication/Plan
-
see A/P
Assessment / Plan
Assessment / Plan
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
In May 2024, he had an inguinal hernia repair and was intubated during that surgery. Per pt, since then he had extreme difficulty getting anything thicker than liquids down and feels food stuck.
He has lost 25 pounds since the surgery. He had a CT scan of his chest abdomen pelvis with and without IV contrast at the end of June which showed no acute findings.
He also notes ongoing left shoulder pain. He was thought to have left shoulder strain and has been doing physical therapy without any significant relief. He cannot tolerate NSAIDs as it increases his blood pressure per him.
The pain in his shoulder keeps him up at night.
He also noted recent development of unsteady shuffling and left arm rigidity with tremor.
A/P:
# Progressive dysphagia
# Weight loss likely 2/2 poor PO intake
GI on board, felt problem relating to swallow initiation from general anesthesia/intubation/edema from trauma of intubation. No plan for EGD
s/p FEES, noted mild-moderate pharyngeal dysphagia. Suspect dysphagia secondary to known history of prior head and neck cancer with radiation in 2021 acutely exacerbated by recent intubation for surgical procedure in May 2024.
Pt was recc for puree and Thin liquid, start trial of puree and monitor tolerance
ENT eval
# new unsteady shuffling gait and new L arm tremor with cogwheel rigidity, ?Parkinsonism/Parkinson's disease
Could his dysphagia be related to ?Parkinsonism/Parkinson's disease
Neuro on board, recc Carbidopa-Levodopa, pt declined currently
MRI brain No evidence of acute intracranial abnormality.
PT OT recc HH
# L shoulder pain
Shoulder XR: No evidence of acute fracture or dislocation. Mild to moderate degenerative change of the left acromioclavicular joint.
trial of lidocaine patch
Dilaudid PRN with bowel regimen Senokot-S
consider outpt MRI L shoulder
PT OT recc HH
# hypertension
Cont home meds with holding parameter
# loa-emswalz-xoindauzk diabetes
ISS
# h/o HPV throat cancer s/p surgery and XRT
# recent inguinal hernia surgery in May 2024
DVT ppx: Lovenox SQ
FC
DW and son at bedside
total time spent 55 min
Anticipated Discharge: Within 24 hours
Subjective/Interval History
-
Date of Service: July 28, 2024
Objective Data
-
Labs:
Laboratory Results
07/28/24
09:05
WBC 6.7
Hgb 13.2
Hct 36.5 L
Plt Count 306
Sodium 133 L
Potassium 3.7
Chloride 95 L
Carbon Dioxide 27
BUN 17
Creatinine 0.8
Glucose 149 H
Calcium 9.5
Total Bilirubin 0.8
AST 83 H
ALT 104 H
Alkaline Phosphatase 23 L
Vital Signs:
Vital Signs
Temp Pulse Resp BP Pulse Ox
36.6 C 75 17 144/69 98
07/28/24 07:33 07/28/24 07:38 07/28/24 07:33 07/28/24 07:38 07/28/24 07:33
I&O
07/27/24 07/28/24 07/29/24
06:59 06:59 06:59
Intake Total 480 / 480
Balance 480 / 480
Review of Systems
-
History Source: Patient
All other systems: Reviewed and negative
Musculoskeletal: Reports Joint Pain (L shoulder pain has improved )
Physical Exam
-
General: Well Developed, No Apparent Distress, Comfortable, Conversant (slow and soft speech) and Appears Chronically Ill; Negative Respiratory Distress
HEENT: Normocephalic, Atraumatic, Nose Appears Normal and Ears Appear Normal; Negative Oxygen
Respiratory: Clear to Auscultation and Non Labored Respirations; Negative Accessory Resp Muscle Use
Cardiac: Regular Rhythm and S1/S2
GI: Soft, Nontender, Nondistended and Normal Bowel Sounds
Skin: Warm and Dry
Neuro: Awake, Alert, Oriented and AO x 3
Psych: Calm, Intact Judgement/Insight and Other (flat affect )
Data Reviewed
-
MRI: Report Reviewed by me, Discussed with Patient and Discussed with Family
Labs: Labs Reviewed by me
[2024-07-28 11:29] LABS: Glycohemoglobin (HgbA1c) 5.9 % (4.0-5.6)
[2024-07-28] MEDS: MAGNESIUM SULFATE 50 IV (11:30)
[2024-07-28 11:38] LABS: Glucose - Point of Care 201 mg/dl (70-99)
[2024-07-28] MEDS: NOVOLOG FLEXPEN-LOW RESISTANCE 2 UNITS SC (12:47)
--- NOTE | 2024-07-28 12:49 | CM ---
clinical study manager reviewed patient's chart and met with patient and patient lives with his spouse in a 2 story home, patient is independent with adl's and ambulation, no dme, plan is to home with spouse when stable.
PCP: Eros Alvarenga
[facility]armacy [facility]
Plan; Home with spouse when stable.
--- NOTE | 2024-07-28 13:13 | CON.MD ---
Consultation - Medical
-
dictated.
dysphagia from combination of 1) prior surgery 2) Radiation 3) recent intubation 4) reflux 5) Parkinson's
No evidence of recurrent cancer.
Will restart pepcid, being treated for Parkinson's, continue Speech Therapy.
If unable to maintain adequate nutrition may need to have PEG tube replaced.
2
[2024-07-28 15:22] VITALS: BP 135/63
[2024-07-28 16:32] LABS: Glucose - Point of Care 127 mg/dl (70-99)
[2024-07-28] MEDS: LOVENOX 40 MG SC (17:04)
[2024-07-28] MEDS: NORVASC 10 MG PO (17:05)
[2024-07-28] MEDS: ZESTRIL 40 MG PO (17:05)
[2024-07-28] MEDS: FLOMAX 0.4 MG PO (17:05)
[2024-07-28] MEDS: PROSCAR 5 MG PO (17:05)
[2024-07-28] MEDS: SENOKOT-S PO (20:37)
[2024-07-28] MEDS: PEPCID 20 MG PO (20:41)
[2024-07-28 21:36] LABS: Glucose - Point of Care 187 mg/dl (70-99)
[2024-07-28] MEDS: MELATONIN 5 MG PO (23:00)
[2024-07-28 23:20] VITALS: BP 106/58
[2024-07-29 06:30] LABS: Hematocrit 34.5 % (39.0-52.0); Hemoglobin 12.5 g/dL (13.0-18.0); Mean Corp Hgb Conc. 36.2 g/dL (33.0-37.0); Mean Corpuscular Hgb 30.2 pg (27.0-31.0); Mean Corpuscular Volume 83.3 fL (80.0-94.0); Mean Platelet Volume 11.1 fL (7.4-10.4); Platelet Count 255 10^3/uL (130-400); Red Blood Cell Count 4.14 10^6/uL (4.70-6.10); Red Cell Dist. Width 13.6 % (11.5-14.5); White Blood Cell Count 6.7 10^3/uL (4.8-10.8)
[2024-07-29 06:53] LABS: ALT (SGPT) 95 U/L (0-50); AST (SGOT) 59 U/L (17-59); Albumin 3.7 g/dl (3.5-5.0); Alkaline Phosphatase 22 U/L (38-126); Blood Urea Nitrogen 20 mg/dl (9-20); Calcium 9.2 mg/dl (8.4-10.2); Carbon Dioxide 31 mmol/L (22-30); Chloride 100 mmol/L (98-107); Direct Bilirubin 0.2 mg/dl (0.0-0.4); Estimated Creatinine Clearance 68 ml/min; Glucose 120 mg/dl (70-99); Magnesium 1.9 mg/dl (1.6-2.3); Potassium 3.8 mmol/L (3.5-5.1); Sodium 135 mmol/L (135-145); Total Bilirubin 0.6 mg/dl (0.2-1.3); eGFR > 60.00
[2024-07-29 07:46] VITALS: BP 115/56
[2024-07-29] MEDS: LIDOCAINE 4% PATCH 1 PATCH TOPICAL (07:58)
[2024-07-29] MEDS: LOW STRENGTH ASPIRIN 81 MG PO (07:58)
[2024-07-29] MEDS: PEPCID 20 MG PO ×2 (07:58→19:51)
[2024-07-29] MEDS: LOPRESSOR 100 MG PO ×2 (07:58→19:50)
[2024-07-29] MEDS: SENOKOT-S 1 TABLET PO ×2 (07:58→19:50)
[2024-07-29] MEDS: DILAUDID 0.25 MG IV ×3 (08:15→22:22)
[2024-07-29] MEDS: SINEMET 25-100 PO (08:24)
[2024-07-29] MEDS: NOVOLOG FLEXPEN-LOW RESISTANCE SC ×3 (08:52→17:48)
[2024-07-29 08:59] LABS: Glucose - Point of Care 137 mg/dl (70-99)
--- NOTE | 2024-07-29 09:53 | W.PN.HOSP.TC ---
Addendum entered and electronically signed by Charis Farmer MD 07/29/24 13:48:
extensive discussion with at bedside
Original Note:
Today's Communication/Plan
-
see A/P
Assessment / Plan
Assessment / Plan
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
In May 2024, he had an inguinal hernia repair and was intubated during that surgery. Per pt, since then he had extreme difficulty getting anything thicker than liquids down and feels food stuck.
He has lost 25 pounds since the surgery. He had a CT scan of his chest abdomen pelvis with and without IV contrast at the end of June which showed no acute findings.
He also notes ongoing left shoulder pain. He was thought to have left shoulder strain and has been doing physical therapy without any significant relief. He cannot tolerate NSAIDs as it increases his blood pressure per him.
The pain in his shoulder keeps him up at night.
He also noted recent development of unsteady shuffling and left arm rigidity with tremor.
A/P:
# Progressive dysphagia
# Weight loss likely 2/2 poor PO intake
GI on board, felt problem relating to swallow initiation from general anesthesia/intubation/edema from trauma of intubation. No plan for EGD
s/p FEES, noted mild-moderate pharyngeal dysphagia. Suspect dysphagia secondary to known history of prior head and neck cancer with radiation in 2021 acutely exacerbated by recent intubation for surgical procedure in May 2024.
Pt was recc for puree and Thin liquid, started trial of puree and monitor tolerance
appreciate ENT input, restart pepcid, being treated for Parkinson's, continue Speech Therapy. If unable to maintain adequate nutrition may need to have PEG tube replaced.
# new unsteady shuffling gait and new L arm tremor with cogwheel rigidity, ?Parkinsonism/Parkinson's disease
Could his dysphagia be related to ?Parkinsonism/Parkinson's disease
Neuro on board, recc Carbidopa-Levodopa, pt declined currently
MRI brain: No evidence of acute intracranial abnormality.
PT OT recc HH
# L shoulder pain
Shoulder XR: No evidence of acute fracture or dislocation. Mild to moderate degenerative change of the left acromioclavicular joint.
cont trial of lidocaine patch x2
Dilaudid PRN with bowel regimen Senokot-S
recc outpt MRI L shoulder
PT OT recc HH
Ortho CS for consideration of steroid injection
# hypertension
Cont home meds with holding parameter
# tkp-owfmpns-fuwoaegny diabetes
ISS
# h/o HPV throat cancer s/p surgery and XRT
# recent inguinal hernia surgery in May 2024
DVT ppx: Lovenox SQ
FC
DW RN
total time 51 min
Anticipated Discharge: 24 - 48 hours
Subjective/Interval History
-
Date of Service: July 29, 2024
Objective Data
-
Labs:
Laboratory Results
07/29/24
06:07
WBC 6.7
Hgb 12.5 L
Hct 34.5 L
Plt Count 255
Sodium 135
Potassium 3.8
Chloride 100
Carbon Dioxide 31 H
BUN 20
Creatinine 0.9
Glucose 120 H
Calcium 9.2
Total Bilirubin 0.6
AST 59
ALT 95 H
Alkaline Phosphatase 22 L
Vital Signs:
Vital Signs
Temp Pulse Resp BP Pulse Ox
36.4 C 72 12 115/56 97
07/29/24 07:46 07/29/24 07:58 07/29/24 07:46 07/29/24 07:58 07/29/24 07:46
I&O
07/28/24 07/29/24 07/30/24
06:59 06:59 06:59
Intake Total 480 / 480 1260 / 1260
Balance 480 / 480 1260 / 1260
Review of Systems
-
History Source: Patient
All other systems: Reviewed and negative
Musculoskeletal: Reports Joint Pain (L shoulder pain has improved )
Physical Exam
-
General: Well Developed, No Apparent Distress, Comfortable, Conversant (slow and soft speech) and Appears Chronically Ill; Negative Respiratory Distress
HEENT: Normocephalic, Atraumatic, Nose Appears Normal and Ears Appear Normal; Negative Oxygen
Respiratory: Clear to Auscultation and Non Labored Respirations; Negative Accessory Resp Muscle Use
Cardiac: Regular Rhythm and S1/S2
GI: Soft, Nontender, Nondistended and Normal Bowel Sounds
Skin: Warm and Dry
Neuro: Awake, Alert, Oriented, AO x 3 and Other (slow gait)
Psych: Calm, Intact Judgement/Insight and Other (flat affect )
Data Reviewed
-
MRI: Report Reviewed by me, Discussed with Patient and Discussed with Family
Labs: Labs Reviewed by me
[2024-07-29] MEDS: SINEMET 25-100 1 TABLET PO ×3 (10:08→22:22)
[2024-07-29 12:54] LABS: Glucose - Point of Care 134 mg/dl (70-99)
[2024-07-29 15:30] VITALS: BP 142/73
[2024-07-29 17:36] VITALS: BP 131/52
[2024-07-29] MEDS: NORVASC 10 MG PO (17:42)
[2024-07-29] MEDS: FLOMAX 0.4 MG PO (17:42)
[2024-07-29] MEDS: ZESTRIL 40 MG PO (17:42)
[2024-07-29] MEDS: PROSCAR 5 MG PO (17:42)
[2024-07-29] MEDS: LOVENOX 40 MG SC (17:42)
[2024-07-29 17:45] LABS: Glucose - Point of Care 117 mg/dl (70-99)
[2024-07-29 21:35] LABS: Glucose - Point of Care 134 mg/dl (70-99)
[2024-07-29] MEDS: MELATONIN 5 MG PO (22:22)
[2024-07-29 23:05] VITALS: BP 125/66
--- NOTE | 2024-07-30 05:48 | CON.ORTHO ---
Consultation
-
Date/Time Consultation Requested: August 12
Date/Time Consultation Performed: August 12
Requesting Provider: Marleny
Performing Provider: Fran Packer
Reason for Consultation: Left shoulder pain
Consultation - Orthopedics
History
History of Present Illness
69-year-old male with PMH of hypertension icz-xjdjwmr-jzulqmrrj diabetes presents with progressively worsening dysphagia. In May of this year, he had an inguinal hernia repair and he states he was intubated during that surgery. Since then had
extreme difficulty getting anything thicker than liquids down. He feels at times eggs get stuck and he either has to drink several glasses of water or cough it back up. He has lost 25 pounds since the surgery. He also notes ongoing left shoulder
pain, for which we have been consulted. He was thought to have left shoulder strain and has been doing physical therapy without any significant relief. He cannot tolerate NSAIDs as it increases his blood pressure. The pain in his shoulder is
keeping him up at night. He also notes unsteady shuffling gait that is started recently with a tremor in the left arm. He had a CT scan of his chest abdomen pelvis with and without IV contrast at the end of June which showed no acute findings. He
has been in contact with an ENT doctor that he has seen in the past secondary to throat cancer. They wanted a swallow study or a barium swallow for evaluation. He had throat surgery with radiation in 2021 for HPV cancer in his throat. His work-up
for dysphagia is ongoing here inpatient, but again, our orthopaedic team has been consulted by Dr. Farmer due to his left shoulder pain. Xrays reveal nothing acute, but some chronic ACJOA. Denies any CP, SOB, or palpitations.
Past Medical History:
HTN
byt-glpivay-ikmghamra diabetes,
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
Past Surgical History:
Tonsillectomy
Throat surgery 2021
Inguinal hernia surgery in May 2024
Social History:
Tobacco: Non-smoker
Alcohol: Occasional
Personal:
Living: With Family
Family History:
Not pertinent
ROS:
12 point negative except for those mentioned in the HPI
Allergies / Home Medications
Allergy/AdvReac Type Severity Reaction Status Date / Time
cat dander Allergy Asthma, Verified 07/27/24 09:10
Congestion
codeine Allergy Vomiting Verified 07/27/24 09:10
latex Allergy Rash Verified 07/27/24 09:10
�Medication �Instructions �Recorded
amlodipine 10 mg tablet 10 mg PO QPM 06/08/21
aspirin 81 mg tablet,delayed 81 mg PO QPM 06/08/21
release
atorvastatin 20 mg tablet 20 mg PO QPM 06/08/21
fenofibrate nanocrystallized 145 145 mg PO QPM 06/08/21
mg tablet
metformin 1,000 mg tablet 1,000 mg PO BID 06/08/21
metoprolol succinate 100 mg 100 mg PO BID 06/08/21
tablet,extended release 24 hr
finasteride 5 mg tablet 5 mg PO QPM 05/31/24
lisinopril 40 mg tablet 40 mg PO QPM 05/31/24
lorazepam 1 mg tablet 1 mg PO DAILYPRN PRN Anxiety 05/31/24
tamsulosin 0.4 mg capsule 0.4 mg PO QPM 05/31/24
acetaminophen 325 mg tablet 650 mg (2 x 325 mg) PO Q6HPRN PRN 06/07/24
mild pain #14 tabs
chlorthalidone 25 mg tablet 25 mg PO QPM 07/27/24
Vital Signs / Lab Results
Temp Pulse Resp BP Pulse Ox
97.6 F 64 16 125/66 97
07/29/24 23:05 07/29/24 23:05 07/29/24 23:05 07/29/24 23:05 07/29/24 23:05
Assessment / Plan
PE: Afeb. Left shoulder skin intact. No obvious or palpable deformities. Some tenderness noted over the anterior lateral shoulder. A little left-sided cervical paraspinal tenderness as well. No significant pain at the AC joint. No pain over the
SC joint or biceps tendon. Globally active motion a bit restricted. No evidence of adhesive capsulitis 4+/5 strength abduction and external rotation. Positive Neer's test. Negative Fam maneuver. Negative speeds test. Elbow, wrist, hand all
move well. DNVI LUE
Xrays: Left Shoulder no acute findings. Chronic changes at the AC joint
Impression: Left shoulder pain- impingement syndrome with possible RCT
Possible cervical radiculopathy
Plan: Patient's left shoulder pain discussed bedside. Very well could be dealing with some rotator cuff pathology, or maybe a cervical radiculopathy. Continue treatment per the primary team. Pain control. patient did inquire about possible
steroid injection to the shoulder. I think this is reasonable. He does understand that any component of his cervical radiculopathy will not be addressed with this. I will return to the hospital around lunchtime to perform the injection.Once
medically optimized and discharged consider outpatient orthopedic follow-up for the consideration of possible MRI if symptoms persist. PT/OT Could be beneficial as an inpatient, if deemed appropriate. I did obtain his verbal consent for the
injection later. Medications and supplies ordered. Discussed with RNDarya. It was also approved by the medical team. Orthopedics to sign off for now. Follow-up information annotated in the discharge plan.
[2024-07-30] MEDS: LIDOCAINE 4% PATCH 2 PATCH TOPICAL (06:34)
[2024-07-30 07:40] VITALS: BP 140/69
[2024-07-30] MEDS: LOW STRENGTH ASPIRIN 81 MG PO (08:22)
[2024-07-30] MEDS: PEPCID 20 MG PO (08:22)
[2024-07-30] MEDS: LOPRESSOR 100 MG PO (08:22)
[2024-07-30] MEDS: SINEMET 25-100 1 TABLET PO (08:22)
[2024-07-30] MEDS: SENOKOT-S 1 TABLET PO (08:22)
[2024-07-30 08:33] LABS: Hematocrit 37.3 % (39.0-52.0); Hemoglobin 13.6 g/dL (13.0-18.0); Mean Corp Hgb Conc. 36.5 g/dL (33.0-37.0); Mean Corpuscular Hgb 29.9 pg (27.0-31.0); Platelet Count 284 10^3/uL (130-400); Red Blood Cell Count 4.55 10^6/uL (4.70-6.10); Red Cell Dist. Width 13.6 % (11.5-14.5)
[2024-07-30] MEDS: NOVOLOG FLEXPEN-LOW RESISTANCE SC ×2 (08:36→12:38)
[2024-07-30 08:38] LABS: Glucose - Point of Care 146 mg/dl (70-99)
[2024-07-30] MEDS: DILAUDID 0.25 MG IV (09:19)
[2024-07-30 09:20] LABS: ALT (SGPT) 26 U/L (0-50); AST (SGOT) 79 U/L (17-59); Albumin 4.5 g/dl (3.5-5.0); Alkaline Phosphatase 24 U/L (38-126); Blood Urea Nitrogen 17 mg/dl (9-20); Calcium 9.4 mg/dl (8.4-10.2); Carbon Dioxide 26 mmol/L (22-30); Chloride 99 mmol/L (98-107); Direct Bilirubin 0.3 mg/dl (0.0-0.4); Estimated Creatinine Clearance 77 ml/min; Glucose 128 mg/dl (70-99); Magnesium 1.8 mg/dl (1.6-2.3); Potassium 3.8 mmol/L (3.5-5.1); Sodium 135 mmol/L (135-145); Total Bilirubin 0.8 mg/dl (0.2-1.3); Total Protein 6.7 g/dl (6.3-8.2); eGFR > 60.00
[2024-07-30] MEDS: XYLOCAINE 1% 20 ML INJ (10:50)
[2024-07-30] MEDS: DEPO-MEDROL 40 MG INTRAARTIC (10:50)
--- NOTE | 2024-07-30 10:52 | PTCARENOTE ---
Steroid injection givn in patient's left shoulder by ortho PA>
--- NOTE | 2024-07-30 11:31 | CM ---
Addendum entered by Faviola Glass 07/30/24 14:35:
d/c home, fax sent to [facility]- [phone].
Addendum entered by Faviola Glass 07/30/24 12:40:
Patient updated referral for [facility] cancelled and [facility] to follow.
Addendum entered by Faviola Glass 07/30/24 12:13:
Spouse agreeable to [facility]'s but patient wants [facility].
Per [facility] Liaison, [facility] will be able to accept and start next week.
Original Note:
Patient seen bedside with spouse.
Patient agreeable to home care, but not until they return from [facility] home in [place] not week.
Patient insists on [facility] (known to [facility]).
Patient aware [facility] will not start until next week and Primary MD may have to order.
IMM reviewed and signed.
Plan: home with [facility]
--- NOTE | 2024-07-30 12:05 | VNURNOTE ---
Home Health Liaison met with patient and spouse Brinda at bedside to discuss [facility] nurse/therapy, visits, schedule and homebound status. They are agreeable and understand that visits at home will be 2-3 x per week to assess and teach medical
management. They are aware that [facility] will contact them after DC for start of care. Patient plans on staying with daughter in [place] x 1 week after DC. [facility] will reach out to him after he returns home to [place]- noted on referral.
[facility] referral completed in [facility].
[2024-07-30 12:47] LABS: Glucose - Point of Care 144 mg/dl (70-99)
--- NOTE | 2024-07-30 13:17 | W.PN.HOSP.TC ---
Addendum entered and electronically signed by Charis Farmer MD 07/30/24 16:52:
# Severe Malnutrition
# Hyponatremia, resolved
Addendum entered and electronically signed by Charis Farmer MD 07/30/24 15:35:
total DC time 40 min
Original Note:
Today's Communication/Plan
-
DC home today with HH
pt requesting paper scripts for new meds
Assessment / Plan
Assessment / Plan
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
In May 2024, he had an inguinal hernia repair and was intubated during that surgery. Per pt, since then he had extreme difficulty getting anything thicker than liquids down and feels food stuck.
He has lost 25 pounds since the surgery. He had a CT scan of his chest abdomen pelvis with and without IV contrast at the end of June which showed no acute findings.
He also notes ongoing left shoulder pain. He was thought to have left shoulder strain and has been doing physical therapy without any significant relief. He cannot tolerate NSAIDs as it increases his blood pressure per him.
The pain in his shoulder keeps him up at night.
He also noted recent development of unsteady shuffling and left arm rigidity with tremor.
A/P:
# Progressive dysphagia
# Weight loss likely 2/2 poor PO intake
GI on board, felt problem relating to swallow initiation from general anesthesia/intubation/edema from trauma of intubation. No plan for EGD
s/p FEES, noted mild-moderate pharyngeal dysphagia. Suspect dysphagia secondary to known history of prior head and neck cancer with radiation in 2021 acutely exacerbated by recent intubation for surgical procedure in May 2024.
Pt was recc for puree and Thin liquid by SPL, started trial of puree and monitor tolerance. Pt declined further advancement despite SPL recc soft and bite size.
appreciate ENT input, restarted pepcid, being treated for Parkinson's, continue Speech Therapy. If unable to maintain adequate nutrition may need to have PEG tube replaced.
# new unsteady shuffling gait and new L arm tremor with cogwheel rigidity, ?Parkinsonism/Parkinson's disease
Could his dysphagia be related to ?Parkinsonism/Parkinson's disease
Neuro on board, recc Carbidopa-Levodopa, pt finally agrees to take
MRI brain: No evidence of acute intracranial abnormality.
PT OT recc HH
Recc outpt neuro eval and for titration of Sinemet
# L shoulder pain
Shoulder XR: No evidence of acute fracture or dislocation. Mild to moderate degenerative change of the left acromioclavicular joint.
cont trial of lidocaine patch x2
Dilaudid PRN with bowel regimen Senokot-S
recc outpt MRI L shoulder
PT OT recc HH
s/p steroid injection by ortho 07/30
# hypertension
Cont home meds with holding parameter
# yiq-zgjoqtp-gbhujtjud diabetes
ISS
# h/o HPV throat cancer s/p surgery and XRT
# recent inguinal hernia surgery in May 2024
DVT ppx: Lovenox SQ
FC
DW RN
Anticipated Discharge: Today
Subjective/Interval History
-
Date of Service: July 30, 2024
Objective Data
-
Labs:
Laboratory Results
07/30/24
07:54
WBC 7.0
Hgb 13.6
Hct 37.3 L
Plt Count 284
Sodium 135
Potassium 3.8
Chloride 99
Carbon Dioxide 26
BUN 17
Creatinine 0.8
Glucose 128 H
Calcium 9.4
Total Bilirubin 0.8
AST 79 H
ALT 26
Alkaline Phosphatase 24 L
Vital Signs:
Vital Signs
Temp Pulse Resp BP Pulse Ox
36.6 C 72 16 140/69 96
07/30/24 07:40 07/30/24 08:22 07/30/24 07:40 07/30/24 08:22 07/30/24 08:42
I&O
07/29/24 07/30/24 07/31/24
06:59 06:59 06:59
Intake Total 1260 / 1260
Output Total 240 / 240
Balance 1260 / 1260 -240 / -240
Review of Systems
-
History Source: Patient
All other systems: Reviewed and negative
Musculoskeletal: Reports Joint Pain (L shoulder pain has improved )
Physical Exam
-
General: Well Developed, No Apparent Distress, Comfortable, Conversant (slow and soft speech) and Appears Chronically Ill; Negative Respiratory Distress
HEENT: Normocephalic, Atraumatic, Nose Appears Normal and Ears Appear Normal; Negative Oxygen
Respiratory: Clear to Auscultation and Non Labored Respirations; Negative Accessory Resp Muscle Use
Cardiac: Regular Rhythm and S1/S2
GI: Soft, Nontender, Nondistended and Normal Bowel Sounds
Skin: Warm and Dry
Neuro: Awake, Alert, Oriented, AO x 3 and Other (slow gait)
Psych: Calm, Intact Judgement/Insight and Other (flat affect )
Data Reviewed
-
MRI: Report Reviewed by me, Discussed with Patient and Discussed with Family
Labs: Labs Reviewed by me
[2024-07-30 13:30] VITALS: BP 155/71
[2024-07-30 14:13] VITALS: BMI 25.3
--- NOTE | 2024-07-30 14:57 | W.DCSUMMARY ---
Discharge Summary
Discharge Data
Date of Admission: 07/27/24
Date of Discharge: 07/30/24
-
Pending Results: No
Hospital Course
Principal Diagnosis:
Progressive dysphagia with weight loss likely 2/2 poor PO intake
New unsteady shuffling gait and new L arm tremor with cogwheel rigidity, ?Parkinsonism/Parkinson's disease
Chronic Diagnoses:�
Recent inguinal hernia surgery in May 2024
Chronic L shoulder pain
Hypertension
Zjo-vtpabjp-woexabaus diabetes
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
Consultations:�
Neurology
Gastroenterology
ENT
Orthopedic
Procedures:�
Left shoulder steroid injection
Clinical course:�
This is a 69-year-old male with past medical history as stated above, who presented with progressive dysphagia since his relatively recent inguinal hernia surgery in May 2024.
He has had a CT scan of his chest abdomen pelvis with and without IV contrast at the end of June which showed no acute findings.
Problem 1:
Progressive dysphagia with weight loss likely 2/2 poor PO intake.
He was seen by GI, who felt that the problem was relating to swallow initiation, secondary to general anesthesia/intubation/edema from trauma of intubation from the hernia surgery back in May 2024.
There was no plan for EGD per GI.
The patient has had FEES, which noted mild-moderate pharyngeal dysphagia.
He was also seen by ENT, who recommended Pepcid and ongoing speech therapy.
He was able to tolerate pur�ed diet while in the hospital, and can continue to see speech therapist outpatient for ongoing evaluation.
Problem 2:
New unsteady shuffling gait and new L arm tremor with cogwheel rigidity, ?Parkinsonism/Parkinson's disease.
It is possible that his dysphagia could be related to Parkinson's.
He was seen by neurology, and was recommended to start Carbidopa-Levodopa, which he initially refused, but later agreed.
He can follow-up with neurology for Sinemet titration.
Of note, his MRI brain showed no acute intracranial abnormality.
Problem 3:
L shoulder pain,
His shoulder XR showed no evidence of acute fracture or dislocation. Mild to moderate degenerative change of the left acromioclavicular joint.
He was started with trial of lidocaine patch, which he can continue going forward.
He was also given Dilaudid with bowel regimen Senokot-S.
He can follow-up outpatient with his PCP for left shoulder MRI.
He was cleared by PT OT to return home with home health.
He did received steroid injection by Ortho on 07/30/2024 for left shoulder pain.
As for the rest of his medical problems, they were stable during his hospital stay.
Discharge Plan
-
Patient Disposition: Home with Home Care
Discharge Diagnosis/Procedures: Progressive dysphagia and weight loss likely due to poor oral intake;
New unsteady shuffling gait and new L arm tremor with cogwheel rigidity (?Parkinsonism/Parkinson's disease);
L shoulder pain;
h/o HPV throat cancer status post surgery and radiation;
recent inguinal hernia surgery in May 2024
Condition: Fair
Diet: As tolerated and Other diet
Additional Diets: pureed diet, thin liquid
Activity: As tolerated
Driving Restrictions: As prior to admission
Activity Restrictions/Additional Instructions:
Follow up with neurology for Parkinson's work up and Sinemet dose adjustment
Follow up with ortho for your L shoulder pain and consideration of MRI outpatient.
Referrals:
[facility] [Outside] - in one to two days (Call the [phone] to schedule outpatient speech therapy evaluation. )
Eros Alvarenga DO [Family Provider] - in less than 1 week
Kal Pcaker MD [Active] - in one to two weeks
Additional Discharge Medication Instructions: Continue Dilaudid for your severe L shoulder pain. Take Senokot-S to prevent constipation.
Prescriptions:
New
metoprolol tartrate 100 mg Tablet
100 mg PO BID Qty: 60 0RF
famotidine 20 mg Tablet
20 mg PO BID Qty: 60 0RF
sennosides-docusate sodium 8.6-50 mg Tablet
1 tab PO BIDPRN PRN (Reason: constipation) Qty: 30 0RF
carbidopa-levodopa 25-100 mg Tablet
1 tab PO TID Qty: 90 0RF
hydromorphone [Dilaudid] 2 mg tablet
2 mg PO Q6H PRN (Reason: severe pain) Qty: 5 0RF
Continued
atorvastatin 20 MG tablet
20 mg PO QPM
aspirin 81 MG tablet,delayed release (DR/EC)
81 mg PO QPM
amlodipine 10 MG tablet
10 mg PO QPM
metformin 1,000 MG tablet
1,000 mg PO BID
fenofibrate nanocrystallized 145 MG tablet
145 mg PO QPM
tamsulosin 0.4 mg capsule
0.4 mg PO QPM
lorazepam 1 mg Tablet
1 mg PO DAILYPRN PRN (Reason: Anxiety)
lisinopril 40 mg tablet
40 mg PO QPM
finasteride 5 mg tablet
5 mg PO QPM
acetaminophen 325 mg tablet
650 mg PO Q6HPRN PRN (Reason: mild pain) Qty: 14 0RF
Discontinued
metoprolol succinate 100 MG tablet extended release 24 hr
100 mg PO BID
chlorthalidone 25 mg Tablet
25 mg PO QPM
Discharge Orders:
Discharge Patient (As Directed); Ordered 07/30/24
Ordered By: Charis Farmer
Discharge Date and Time
Discharge Date/Time: 07/30/24 14:05
Print Language: MONGOLIAN
--- NOTE | 2024-07-30 15:34 | PN.CDI ---
CDI
- -
CDI:
Physician Documentation Request
Admit Date: 07/27/24 12:23
Dear Doctor Marleny,
07/30 notes and assessment 'Pt meets criteria for severe protein calorie malnutrition of chronic illness with 29lb/19% wt loss over past 2 months, prolonged poor intake prior to admit < 75% for > 1 month. '
Based on the above information and your assessment, which of the following most accurately represents the patient's nutritional status?
Severe Malnutrition
Other (please specify)
[place] Criteria ([facility] 2017)
2 or more criteria must be present for either
non severe or severe malnutrition
Note that the criteria differs related to the
presence of an acute or chronic illness
Acute Illness Chronic Illness
Energy Intake Non Severe: <75% for >7 days Non Severe: <75% for >1 month
Severe: <50% for >5 days Severe: <75% for >1 month
Weight Loss Non Severe: 1-2% over 1 week Non Severe: 5% over 1 month
5% over 1 month 7.5% over 3 months
7.5% over 3 months 10% over 6 months
1 year N/A 20% over 1 year
Severe: >2% over 1 week Severe: >5% over 1 month
>5% over 1 month >7.5% over 3 months
>7.5% over 3 months >10% over 6 months
1 year N/A >20% over 1 year
Body Fat Non Severe: Mild Decrease Non Severe: Mild Loss
Severe: Moderate Decrease Severe: Severe Loss
Muscle Mass Non Severe: Mild Decrease Non Severe: Mild Loss
Severe: Moderate Decrease Severe: Severe Loss
Fluid Accumulation Non Severe: Mild Accumulation Non Severe: Mild Accumulation
Severe: Moderate to severe Severe: Moderate to severe
accumulation accumulation
Reduced Barrel Filler Strength Non Severe: N/A Non Severe: N/A
Severe: Measurably reduced Severe: Measurably reduced
Use of terms such as suspected, likely, concern for, or probable (associated with a specific diagnosis that is being evaluated, monitored, or treated as if it exists) are acceptable and can be coded in the inpatient setting, when documented at the
time of discharge.
Thank you,
Komal Perry RN, BSN
CDI Specialist
tiger text
Please use your independent medical judgment in providing your response.
--- NOTE | 2024-07-30 15:38 | PN.CDI ---
CDI
- -
CDI:
Physician Documentation Request
Admit Date: 07/27/24 12:23
Dear Doctor Marleny,
Patient admitted with progressive dysphagia
Recent sodium values:
Laboratory Tests
07/27/24 07/28/24 07/30/24
09:16 09:05 07:54
Sodium 131 L 133 L 135
Could you please provide a diagnosis that supports the above lab abnormalities and additional evaluation/monitoring:
Hyponatremia
abnormal lab value clinically insignificant
Other
Use of terms such as suspected, likely, concern for, or probable (associated with a specific diagnosis that is being evaluated, monitored, or treated as if it exists) are acceptable and can be coded in the inpatient setting, when documented at the
time of discharge.
Thank you,
Komal Perry RN, BSN
CDI Specialist
tiger text
Please use your independent medical judgment in providing your response.
== END 2024-07-30 14:05 | disposition home health service (06) | DRG 56 ==
LOC: 1 ACUTE 12:23
PROVIDERS: ADMITTING PHYSICIAN Internal Medicine; CONSULT PHYSICIAN Internal Medicine Gastroenterology; CONSULT PHYSICIAN Otolaryngology; CONSULT PHYSICIAN Psychiatry & Neurology Neurology; CONSULT PHYSICIAN Student in an Organized Health Care Education/Training Program; EMERGENCY PHYSICIAN Emergency Medicine; FAMILY PHYSICIAN Student in an Organized Health Care Education/Training Program
DX: G20.A1 Parkinson's disease without dyskinesia, without mention of fluctuations (principal); E43 Unspecified severe protein-calorie malnutrition; E87.1 Hypo-osmolality and hyponatremia; I10 Essential (primary) hypertension; E11.9 Type 2 diabetes mellitus without complications; E78.00 Pure hypercholesterolemia, unspecified; F41.9 Anxiety disorder, unspecified; G89.29 Other chronic pain; R13.19 Other dysphagia; M25.512 Pain in left shoulder; K21.9 Gastro-esophageal reflux disease without esophagitis; Z68.25 Body mass index [BMI] 25.0-25.9, adult; Z92.3 Personal history of irradiation; Z91.040 Latex allergy status; Z88.5 Allergy status to narcotic agent; Z85.21 Personal history of malignant neoplasm of larynx; Z79.84 Long term (current) use of oral hypoglycemic drugs; Z79.82 Long term (current) use of aspirin
CPT/HCPCS: 70450; 70551; 73030; 80053; 82248; 82962; 83036; 83735; 85025; 85027; 92526; 92610; 92612; 96374; 96376; 97167; 99284

== ENCOUNTER → 2024-08-29 08:30 | Outpatient (REF) | payer MEDICARE, SELFPAY | LOC: RST 08:30 | PROVIDERS: FAMILY PHYSICIAN Student in an Organized Health Care Education/Training Program; OTHER PHYSICIAN Otolaryngology | DX: R13.12 Dysphagia, oropharyngeal phase (principal) | CPT/HCPCS: 74230; 92611 ==